=== PATIENT | female | born 1985 | race Caucasian/White ===

== ENCOUNTER 2016-12-09 14:09 | Outpatient (CLI) | payer MEDICAID | END 2016-12-09 14:10 | disposition home or self-care (01) | DX: N64.52 Nipple discharge (principal); L29.9 Pruritus, unspecified ==

== ENCOUNTER 2016-12-11 14:51 | Outpatient (CLI) | payer MEDICAID | END 2016-12-11 14:52 | disposition home or self-care (01) | DX: Z01.419 Encounter for gynecological examination (general) (routine) without abnormal findings (principal) ==

== ENCOUNTER 2017-07-01 12:16 | Emergency (ER) | payer OTHER, MEDICAID ==
--- NOTE | 2017-07-01 14:01 | XRAY Report ---
EXAM: RIGHT ANKLE RADIOGRAPHY EXAM DATE: 07/01/2017 01:19 PM. CLINICAL HISTORY: Fall, twisted ankle, unable to ambulate. COMPARISON: None. TECHNIQUE: 3 views. FINDINGS: Bones: No acute fracture or bony lesion. Plantar and posterior calcaneal spurs. Joints: Ankle mortise is well-maintained. No ankle effusion and no dislocation. Soft Tissues: Soft tissue swelling. IMPRESSION: 1. No acute osseous abnormalities. [facility] Referring Provider Line: [phone] SITE ID: [id number]
--- NOTE | 2017-07-01 14:02 | XRAY Report ---
EXAM: RIGHT FOOT RADIOGRAPHY EXAM DATE: 07/01/2017 01:19 PM. CLINICAL HISTORY: Fall, twisted ankle, unable to ambulate. COMPARISON: None. TECHNIQUE: 3 views. FINDINGS: Bones: No acute fracture or bony lesion. Posterior and plantar calcaneal spurs. Joints: Mild right first MTP joint degenerative changes. No dislocation. Soft Tissues: Soft tissue swelling. IMPRESSION: 1. No acute osseous abnormalities. [facility] Referring Provider Line: [phone] SITE ID: [id number]
[2017-07-01] MEDS: IBUPROFEN 400 MG TABLET PO STA (16:14)
[2017-07-01] MEDS: ACETAMINOPHEN 325 MG TABLET PO STA (16:14)
--- NOTE | 2017-07-01 16:15 | ED Physician Documentation ---
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: section - Present Medications Home Medications: Ambulatory Orders Medication Instructions Recorded Confirmed No Known Home Medications [No 07/01/17 07/01/17 Known Home Medications] - Allergies Allergies/Adverse Reactions: Allergies Allergy/AdvReac Type Severity Reaction Status Date / Time No Known Drug Allergies Allergy Verified 07/01/17 12:26 - Social History Does the pt smoke?: Yes Smoking Status: Current every day smoker Does the pt drink ETOH?: No Does the pt have substance abuse?: No - Immunizations Immunizations are current?: Yes PD ED PE NORMAL - Vitals Vital signs reviewed: Yes - Cardiac Cardiac: RRR - Respiratory Respiratory: No respiratory distress - Extremities Extremities: Other (R ankle swollen early ecchymosis, TTP lateral lig and proximal lateral foot, MSV intact) Results - Vitals Vitals: Vital Signs - 24 hr 07/01/17 12:23 Temperature 36.6 C Heart Rate 103 H Respiratory 16 Rate Blood Pressure 144/102 H O2 Saturation 98 Oxygen O2 Source Room air - Rads (name of study) foot ankle Radiology: See rad report (neg) Departure - Departure Disposition: 01 Home, Self Care Clinical Impression: Ankle sprain Qualifiers: Encounter type: initial encounter Involved ligament of ankle: unspecified ligament Laterality: right Qualified Code(s): S93.401A - Sprain of unspecified ligament of right ankle, initial encounter Foot sprain Qualifiers: Encounter type: initial encounter Laterality: right Qualified Code(s): S93.601A - Unspecified sprain of right foot, initial encounter Condition: Good Instructions: ED Sprain Ankle, ED Sprain Foot Follow-Up: Vonda Hawkins ARNP [Primary Care Provider] - Comments: Wear the STELLA, ice, elevate your foot Motrin and tylenol for the pain Use the crutches and / or walking boot to rest your foot and ankle. May gradually increase your activity as tolerated If still too painful to bear weight in 2 weeks, please see your PMD for a recheck and consideration of further imaging Also please have your PMD recheck your blood pressure - it was high today Forms: Activity restrictions
[2017-07-01] MEDS ORDERED: ACETAMINOPHEN 325 MG TABLET PO ONE (16:16)
[2017-07-01] MEDS ORDERED: IBUPROFEN 400 MG TABLET PO ONE (16:16)
[2017-07-01 16:32] VITALS: BP 148/97
== END 2017-07-01 16:31 | disposition home or self-care (01) ==
LOC: ED 12:16
DX: S93.401A Sprain of unspecified ligament of right ankle, initial encounter (principal); S93.601A Unspecified sprain of right foot, initial encounter; W10.8XXA Fall (on) (from) other stairs and steps, initial encounter; Y92.89 Other specified places as the place of occurrence of the external cause; Y99.0 Civilian activity done for income or pay; F17.200 Nicotine dependence, unspecified, uncomplicated
CPT/HCPCS: 1040M; 73610; 73630; 99283; A9270

== ENCOUNTER 2017-09-01 09:31 | Outpatient (CLI) | payer MEDICAID ==
[2017-09-02 10:27] LABS: TEST RESULT REPORT
[2017-09-03 20:06] LABS: TEST RESULT REPORT
== END 2017-09-01 09:32 | disposition home or self-care (01) ==
LOC: LAB.S 09:31
PROVIDERS: ATTEND Nurse Practitioner Family
DX: Z20.2 Contact with and (suspected) exposure to infections with a predominantly sexual mode of transmission (principal)
CPT/HCPCS: 36415; 81599; 86592; 86695; 86696; 86803; 87389

== ENCOUNTER 2018-02-02 08:00 | Outpatient (CLI) | payer MEDICAID ==
[2018-02-02 17:55] LABS: BASOPHILS # (AUTO) 0.1 10^3/uL (0.0-0.1); BASOPHILS % (AUTO) 1.1 %; EOSINOPHILS # (AUTO) 0.4 10^3/uL (0.0-0.7); EOSINOPHILS % (AUTO) 6.5 %; HGB - HEMOGLOBIN 14.4 g/dL (12.0-16.0); LYMPHOCYTES # (AUTO) 1.7 10^3/uL (1.5-3.5); LYMPHOCYTES % (AUTO) 28.3 %; MEAN CORPUSCULAR HEMOGLOBIN 31.1 pg (27.0-31.0); MEAN CORPUSCULAR HGB CONC 33.1 g/dL (32.0-36.0); MEAN CORPUSCULAR VOLUME 93.9 fL (81.0-99.0); MEAN PLATELET VOLUME 8.3 fL (7.9-10.8); MONOCYTES # (AUTO) 0.6 10^3/uL (0.0-1.0); MONOCYTES % (AUTO) 8.9 %; NEUTROPHILS # (AUTO) 3.4 10^3/uL (1.5-6.6); NEUTROPHILS % (AUTO) 55.2 %; PLT - PLATELET COUNT 322 10^3/uL (130-450); RED BLOOD COUNT 4.64 10^6/uL (4.20-5.40); RED CELL DISTRIBUTION WIDTH 13.4 % (12.0-15.0); WHITE BLOOD COUNT 6.2 x10^3/uL (4.8-10.8)
[2018-02-02 19:06] LABS: ALBUMIN 4.4 g/dL (3.2-5.5); ALBUMIN/GLOBULIN RATIO 1.5 (1.0-2.2); ALKALINE PHOSPHATASE 37 IU/L (42-121); ALT ALANINE AMINOTRANSFERASE 15 IU/L (10-60); AST ASPARTATE AMINOTRANSFERASE 15 IU/L (10-42); BILIRUBIN,TOTAL 0.3 mg/dL (0.2-1.0); BUN - BLOOD UREA NITROGEN 14 mg/dL (6-20); CALCIUM 9.2 mg/dL (8.5-10.3); CARBON DIOXIDE - CO2 25 mmol/L (21-32); CHLORIDE 106 mmol/L (101-111); CREATININE 0.7 mg/dL (0.4-1.0); GFR - MDRD 98 (>89); GLUCOSE 100 mg/dL (70-100); SODIUM 139 mmol/L (135-145); TOTAL PROTEIN 7.4 g/dL (6.7-8.2)
== END 2018-02-02 08:01 | disposition home or self-care (01) ==
LOC: LAB.S 08:00
PROVIDERS: ATTEND Nurse Practitioner Family
DX: L65.9 Nonscarring hair loss, unspecified (principal)
CPT/HCPCS: 36415; 80053; 84443; 85025

== ENCOUNTER 2020-10-26 15:24 | Outpatient (CLI) | payer MEDICAID | END 2020-10-26 15:25 | disposition home or self-care (01) | LOC: COV 15:24 | PROVIDERS: ATTEND Family Medicine | DX: Z20.828 Contact with and (suspected) exposure to other viral communicable diseases (principal) ==

== ENCOUNTER 2020-12-26 08:00 | Outpatient (CLI) | payer MEDICAID ==
[2020-12-26 18:06] LABS: MUDS CUTOFF CONCENTRATIONS CUTOFF CONC BELOW:
[2020-12-26 18:19] LABS: BILIRUBIN,URINE NEGATIVE (NEGATIVE); GLUCOSE, URINE (UA) NEGATIVE (NEGATIVE); KETONES,URINE (UA) NEGATIVE (NEGATIVE); LEUKOCYTE ESTERASE, URINE NEGATIVE (NEGATIVE); NITRITE,URINE NEGATIVE (NEGATIVE); OCCULT BLOOD,URINE NEGATIVE (NEGATIVE); PH,URINE 6.5 PH (5.0-7.5); PROTEIN,URINE NEGATIVE (NEGATIVE); UROBILINOGEN,URINE 0.2 (NORMAL) E.U./dL (NORMAL)
[2020-12-26 18:22] LABS: BACTERIA,URINE None Seen /HPF (None Seen); CLARITY,URINE CLEAR (CLEAR); RBC,URINE None Seen /HPF (0-5); SQUAMOUS EPITHELIAL CELL,UR RARE Squamous (<= Few)
[2020-12-26 19:05] LABS: AMPHETAMINE SCREEN,URINE NEGATIVE (NEGATIVE); BENZODIAZEPINES SCREEN, URINE NEGATIVE (NEGATIVE); COCAINE SCREEN URINE NEGATIVE (NEGATIVE); METHADONE SCREEN, URINE NEGATIVE (NEGATIVE); METHAMPHETAMINES SCREEN, URINE NEGATIVE (NEGATIVE); OPIATE SCREEN, URINE NEGATIVE (NEGATIVE); OXYCODONE SCREEN, URINE NEGATIVE (NEGATIVE); PROPOXYPHENE SCREEN, URINE NEGATIVE (NEGATIVE); TRICYCLIC ANTIDEPRESSANT,URINE NEGATIVE (NEGATIVE)
== END 2020-12-26 23:59 | disposition home or self-care (01) ==
LOC: LAB.R 08:00
PROVIDERS: ATTEND Obstetrics & Gynecology
DX: O09.91 Supervision of high risk pregnancy, unspecified, first trimester (principal)
CPT/HCPCS: 80306; 81001; 81599; 87086

== ENCOUNTER 2020-12-26 13:30 | Outpatient (CLI) | payer MEDICAID ==
[2020-12-26 14:14] LABS: BASOPHILS # (AUTO) 0.1 10^3/uL (0.0-0.1); BASOPHILS % (AUTO) 0.5 %; EOSINOPHILS # (AUTO) 0.4 10^3/uL (0.0-0.7); EOSINOPHILS % (AUTO) 3.1 %; HGB - HEMOGLOBIN 14.3 g/dL (12.0-16.0); LYMPHOCYTES % (AUTO) 17.4 %; MEAN CORPUSCULAR HEMOGLOBIN 32.6 pg (27.0-31.0); MEAN CORPUSCULAR HGB CONC 33.9 g/dL (32.0-36.0); MEAN CORPUSCULAR VOLUME 96.1 fL (81.0-99.0); MEAN PLATELET VOLUME 9.4 fL (7.9-10.8); MONOCYTES # (AUTO) 0.7 10^3/uL (0.0-1.0); MONOCYTES % (AUTO) 6.6 %; NEUTROPHILS # (AUTO) 8.1 10^3/uL (1.5-6.6); NEUTROPHILS % (AUTO) 72.2 %; PLT - PLATELET COUNT 342 10^3/uL (130-450); RED BLOOD COUNT 4.39 10^6/uL (4.20-5.40); WHITE BLOOD COUNT 11.3 x10^3/uL (4.8-10.8)
[2020-12-26 15:22] LABS: ALBUMIN/GLOBULIN RATIO 1.3 (1.0-2.2); BILIRUBIN,TOTAL 0.5 mg/dL (0.2-1.0); CALCIUM 9.4 mg/dL (8.5-10.3); CREATININE 0.8 mg/dL (0.4-1.0); TOTAL PROTEIN 7.1 g/dL (6.7-8.2); URIC ACID 4.6 mg/dL (2.6-7.2)
[2020-12-27 12:22] LABS: HEPATITIS C ANTIBODY NON-REACTIVE (NON-REACTIVE)
[2020-12-27 12:23] LABS: HEPATITIS B SURFACE ANTIGEN NON-REACTIVE (NON-REACTIVE)
[2020-12-27 14:42] LABS: HIV AG/AB 4TH GEN NON-REACTIVE (NON-REACTIVE)
== END 2020-12-26 13:31 | disposition home or self-care (01) ==
LOC: LAB 13:30
PROVIDERS: ATTEND Obstetrics & Gynecology
DX: O16.9 Unspecified maternal hypertension, unspecified trimester (principal); R03.0 Elevated blood-pressure reading, without diagnosis of hypertension; Z3A.00 Weeks of gestation of pregnancy not specified; O09.91 Supervision of high risk pregnancy, unspecified, first trimester
CPT/HCPCS: 36415; 80053; 80306; 80349; 81001; 81599; 84550; 85025; 86592; 86762; 86787; 86803; 86850; 86900; 86901; 87086; 87340; 87389

== ENCOUNTER 2021-01-01 09:16 | Outpatient (CLI) | payer MEDICAID ==
--- NOTE | 2021-01-01 11:37 | Ultrasound Report ---
PROCEDURE: OB First Trimester w/TV INDICATIONS: SUPERVISION HIGH RISK OUTSIDE/PRIOR DATING DATA: Last menstrual period (LMP): Unknown. LMP-based estimated date of delivery (CARLOS): Unknown. First dating scan (date and location): 01/01/2021. Estimated date of delivery (CARLOS) from first dating scan: 08/13/2021. TECHNIQUE: Real-time scanning was performed of the fetus and maternal pelvic organs, with image documentation. Endovaginal scanning was also performed to better visualize the fetus and maternal ovaries. COMPARISON: None FINDINGS: Embryo: There is a gestational sac in the uterine fundus measuring approximately 3.7 cm, correspondi ng to gestational age of 9 weeks 0 days. Within the gestational sac, there is a fetus with a crown-ru mp length of 1.6 cm, corresponding to a gestational age of 8 weeks 0 days. heart rate is detect ed at 155 bpm. Measurement variability in dating: +/- 4 weeks by LMP, +/- 7 days by mean sac diameter (use before 6 weeks gestation if crown-rump length not able to be measured), +/- 5 days by crown-rump length (6-12 weeks gestation). Maternal organs: Ovaries are within normal limits.. IMPRESSION: Single live intrauterine gestation with estimated ultrasound age of 8 weeks 0 days. Reviewed by: Jalen Poe MD on 01/01/2021 10:36 AM RIP Approved by: Jalen Poe MD on 01/01/2021 10:36 AM [facility] Station ID: [id number]
== END 2021-01-01 09:17 | disposition home or self-care (01) ==
LOC: DI 09:16
PROVIDERS: ATTEND Obstetrics & Gynecology
DX: O09.91 Supervision of high risk pregnancy, unspecified, first trimester (principal); Z3A.08 8 weeks gestation of pregnancy

== ENCOUNTER 2021-01-25 10:11 | Outpatient (CLI) | payer MEDICAID ==
[2021-01-25 12:01] LABS: ESTIMATED AVERAGE GLUCOSE 108 mg/dL (70-100); HEMOGLOBIN A1c% 5.4 % (4.27-6.07)
== END 2021-01-25 10:12 | disposition home or self-care (01) ==
LOC: LAB 10:11
PROVIDERS: ATTEND Obstetrics & Gynecology
DX: O09.91 Supervision of high risk pregnancy, unspecified, first trimester (principal)
CPT/HCPCS: 36415; 81220; 81243; 81329; 81599; 82950; 83036

== ENCOUNTER 2021-01-29 07:00 | Outpatient (CLI) | payer MEDICAID ==
[2021-01-29 22:07] LABS: CREATININE,URINE 120.6 mg/dL
== END 2021-01-29 23:59 | disposition home or self-care (01) ==
LOC: LAB.R 07:00
PROVIDERS: ATTEND Obstetrics & Gynecology
DX: R03.0 Elevated blood-pressure reading, without diagnosis of hypertension (principal)
CPT/HCPCS: 82570; 84156

== ENCOUNTER 2021-03-20 10:37 | Outpatient (CLI) | payer MEDICAID | END 2021-03-20 10:38 | disposition home or self-care (01) | LOC: LAB 10:37 | PROVIDERS: ATTEND Obstetrics & Gynecology | DX: O09.91 Supervision of high risk pregnancy, unspecified, first trimester (principal) | CPT/HCPCS: 36415; 81599; 82105 ==

== ENCOUNTER 2021-03-27 12:30 | Outpatient (CLI) | payer MEDICAID ==
--- NOTE | 2021-03-27 16:52 | Ultrasound Report ---
PROCEDURE: OB Detailed Eval INDICATIONS: SCREENING, SUPERVISION OF HIGH RISK PREG OUTSIDE/PRIOR DATING DATA: Last menstrual period (LMP): Unknown. LMP-based estimated date of delivery (CARLOS): Unknown. First dating scan (date and location): 01/01/2021. Estimated date of delivery (CARLOS) from first dating scan: 08/13/2021. TECHNIQUE: Real-time scanning was performed of the fetus, with image documentation and biometric measurements. COMPARISON: OB ultrasound 01/01/2021 FINDINGS: General: A single living intrauterine gestation is present. Presentation: Variable Placenta: Placental position is anterior, without previa. Amniotic fluid index: 16.1 cm, within normal limits for gestational age. Largest pocket 4.9 cm. heart rate: 145 beats per minute. Maternal cervical canal: 5.2 cm long; normal length is 2.5 cm or more. biometrics: Biparietal diameter: 5.2 cm 21 weeks 6 days Head circumference: 19.4 cm 21 weeks 4 days Abdominal circumference: 15.9 cm 21 weeks 0 days Femur length: 3.7 cm 21 weeks 6 days Estimated gestational age from initial scan: 20 weeks 1 day Composite gestational age from present scan: 21 weeks 4 days Estimated weight and percentile: 424g 97th percentile Measurement variability in biometric dating: +/- 10 days from 12-20 weeks gestation, +/- 2 weeks from 20-30 weeks gestation, +/- 3 weeks at 30 weeks gestation or later. Anatomic survey: Neuro: Ventricles are normal at less than 10 mm. Cisterna magna is normal at 3-11 mm. Cerebellum i s normal in size and morphology. Nuchal skin fold: Normal at less than 6 mm between 14 and 20 weeks gestational age. Face: Nose and lips, facial profile are normal. Spine: No evidence for spina bifida. Heart: 4-chambered heart and ventricular outflow tracts are suboptimally evaluated.. Diaphragm: Diaphragm is intact. Stomach: Left-sided stomach is present. Kidneys: No hydronephrosis. Normal is less than 5 mm in 2nd trimester, less than 7 mm in 3rd trimester. Cord: 3 vessel cord has orthotopic insertion. Bladder: Normal in size. Extremities: All 4 extremities are visualized. IMPRESSION: 1. Single live intrauterine with ultrasound gestational age today 21 weeks 4 days. 2. Four-chamber heart and outflow tracts are suboptimally evaluated. Recommend short interval imaging follow-up for reevaluation. Reviewed by: Rosenda Kelsey MD on 03/27/2021 4:50 PM PDT Approved by: Rosenda Kelsey MD on 03/27/2021 4:50 PM PDT Station ID: [id number]
== END 2021-03-27 12:31 | disposition home or self-care (01) ==
LOC: DI 12:30
PROVIDERS: ATTEND Obstetrics & Gynecology
DX: Z36.89 Encounter for other specified antenatal screening (principal); O09.91 Supervision of high risk pregnancy, unspecified, first trimester; Z3A.21 21 weeks gestation of pregnancy

== ENCOUNTER 2021-04-12 07:15 | Outpatient (CLI) | payer MEDICAID ==
--- NOTE | 2021-04-12 16:05 | Ultrasound Report ---
PROCEDURE: OB F/U or Repeat INDICATIONS: SUPERVISION OF HIGH RISK OUTSIDE/PRIOR DATING DATA: Last menstrual period (LMP): Unknown. LMP-based estimated date of delivery (CARLOS): Unknown. First dating scan (date and location): 01/01/2021. Estimated date of delivery (CARLOS) from first dating scan: 08/13/2021. The below data below was generated using the ultrasound CARLOS of 01/01/21 TECHNIQUE: Real-time scanning was performed of the fetus, with image documentation and biometric measurements. COMPARISON: OB ultrasound 01/01/2021, 03/27/2021 FINDINGS: General: A single living intrauterine gestation is present. Presentation: Variable Placenta: Placental position is anterior, without previa. Amniotic fluid index: 16.2 cm, within normal limits for gestational age. Largest pocket 5.5 cm heart rate: 143 beats per minute. Maternal cervical canal: 5.0 cm long; normal length is 2.5 cm or more. biometrics: Estimated gestational age from initial scan: 22 weeks 3 days Other: Follow-up imaging demonstrates persistent suboptimal visualization of the heart and outflow tr acts. IMPRESSION: 1. Single live intrauterine 2. Persistent suboptimal visualization of the heart and outflow tracts. Short interval imaging follow -up is recommended for additional evaluation. Reviewed by: Rosenda Kelsey MD on 04/12/2021 4:04 PM PDT Approved by: Rosenda Kelsey MD on 04/12/2021 4:04 PM PDT Station ID: [id number]
== END 2021-04-12 07:16 | disposition home or self-care (01) ==
LOC: DI 07:15
PROVIDERS: ATTEND Obstetrics & Gynecology
DX: O09.91 Supervision of high risk pregnancy, unspecified, first trimester (principal); Z3A.22 22 weeks gestation of pregnancy

== ENCOUNTER 2021-06-07 10:14 | Outpatient (CLI) | payer MEDICAID ==
[2021-06-07 14:36] LABS: HGB - HEMOGLOBIN 10.9 g/dL (12.0-16.0); MEAN CORPUSCULAR HEMOGLOBIN 31.4 pg (27.0-31.0); MEAN CORPUSCULAR VOLUME 95.1 fL (81.0-99.0); MEAN PLATELET VOLUME 10.3 fL (7.9-10.8); RED BLOOD COUNT 3.47 10^6/uL (4.20-5.40); RED CELL DISTRIBUTION WIDTH 13.2 % (12.0-15.0); WHITE BLOOD COUNT 13.9 x10^3/uL (4.8-10.8)
== END 2021-06-07 10:15 | disposition home or self-care (01) ==
LOC: LAB.S 10:14
PROVIDERS: ATTEND Obstetrics & Gynecology
DX: O09.91 Supervision of high risk pregnancy, unspecified, first trimester (principal)
CPT/HCPCS: 36415; 82950; 85027

== ENCOUNTER 2021-06-14 12:39 | Outpatient (CLI) | payer MEDICAID ==
[2021-06-14 13:31] VITALS: BP 131/84
--- NOTE | 2021-06-14 14:32 | PROCEDURE REPORT ---
- HPI Diagnosis/Indication for NST: Pre- Hypertension (History of CHTN prior to .) Current EDU 08/13/21 Gestation 31 Weeks and 3 Days 3 Para 1 Vital Signs Temperature 98.1 F 06/14/21 12:57 Heart Rate 76 06/14/21 12:57 Respiratory Rate 17 06/14/21 12:57 Blood Pressure 138/88 H 06/14/21 12:57 O2 Saturation 97 06/14/21 12:57 Temperature 98.1 F 06/14/21 12:57 Heart Rate 76 06/14/21 12:57 Respiratory Rate 17 06/14/21 12:57 Blood Pressure 131/84 H 06/14/21 13:31 O2 Saturation 97 06/14/21 12:57 - NST Procedure NST Procedure Start Date 06/14/21 Start Time 12:55 Stop Time 13:26 Vibroacoustic Stimulation Used No 36yo G1Po at 31 01/28 weeks. NST: Baseline of 125bpm. Moderate variability and Accelerations of 10X10 present. No decelerations. No contractions.Category I NST that meets Reactive criteria for gestational age. CHERELLE reported to RN from [employer] as 18.6cm total and largest pocket is 7.32cm. - Results and Plan Findings/Impression: IUP 31 01/28 with CHTN on Labetalol. P- Discharge to home. Continue with twice weekly NST's and Weekly CHERELLE. Keep all scheduled appointments. Call for any problems or issues.
--- NOTE | 2021-06-14 14:45 | Ultrasound Report ---
PROCEDURE: OB Limited INDICATIONS: CHERELLE OUTSIDE/PRIOR DATING DATA: Last menstrual period (LMP): Unknown. LMP-based estimated date of delivery (CARLOS): Unknown. First dating scan (date and location): 01/01/2021. Estimated date of delivery (CARLOS) from first dating scan: 08/13/2021. The below data below was generated using the ultrasound CARLOS of 01/01/2021 TECHNIQUE: Real-time scanning was performed of the fetus, with image documentation. Endovaginal scanning: Not performed COMPARISON: 04/12/2021 FINDINGS: A single living intrauterine gestation is present. Presentation: Vertex Placenta: Placental position is anterior, without previa. Amniotic fluid index: 18.6 cm, within normal limits for gestational age. Largest pocket is 7.3 cm heart rate: 133 beats per minutes. Maternal cervical canal: 3.4 cm long; normal length is 2.5 cm or more. Estimated gestational age from initial scan: 31 weeks 3 days. IMPRESSION: CHERELLE measures 18.6 cm, within normal limits Reviewed by: Austin Whittington MD on 06/14/2021 2:44 PM PDT Approved by: Austin Whittington MD on 06/14/2021 2:44 PM PDT Station ID: [id number]
== END 2021-06-14 14:26 | disposition home or self-care (01) ==
LOC: WFO 12:39 → FBP 12:41 → WFO 14:26
PROVIDERS: ATTEND Obstetrics & Gynecology
DX: O10.913 Unspecified pre-existing hypertension complicating pregnancy, third trimester (principal); Z3A.31 31 weeks gestation of pregnancy; Z79.899 Other long term (current) drug therapy
CPT/HCPCS: 59025

== ENCOUNTER 2021-06-18 14:23 | Outpatient (CLI) | payer MEDICAID ==
[2021-06-18 15:18] VITALS: BP 118/73
--- NOTE | 2021-06-18 16:59 | PROCEDURE REPORT ---
- HPI Diagnosis/Indication for NST: Pre- Hypertension (Chronic Hypertension and Gestional Diabetes) Current EDU 08/13/21 Gestation 32 Weeks and 0 Days 3 Para 1 Vital Signs Temperature 98.8 F 06/18/21 14:44 Heart Rate 90 06/18/21 14:44 Respiratory Rate 18 06/18/21 14:44 Blood Pressure 118/73 06/18/21 14:44 O2 Saturation 100 06/18/21 14:44 Temperature 98.8 F 06/18/21 14:44 Heart Rate 90 06/18/21 14:44 Respiratory Rate 18 06/18/21 14:44 Blood Pressure 118/73 06/18/21 14:44 O2 Saturation 100 06/18/21 14:44 - NST Procedure NST Procedure Start Date 06/18/21 Start Time 14:42 Stop Time 15:21 Vibroacoustic Stimulation Used Yes Patient States Movement Yes 36yo at 32 0/7 with Chroinic Hypertension and Gestational Diabetes. Presents for Non-stress test. NST: Baseline Heart Monitor is 130 bpm with moderate Variability and Accelerations are present. Reactive NST and Category I monitor strip. Continue with all scheduled appointments and monitoring. Call for any concerns or problems. - Results and Plan Findings/Impression: Reactive NST Plan: Follow-up as scheduled.
== END 2021-06-18 15:30 | disposition home or self-care (01) ==
LOC: WFO 14:23 → FBP 14:25 → WFO 15:30
PROVIDERS: ATTEND Obstetrics & Gynecology
DX: O24.419 Gestational diabetes mellitus in pregnancy, unspecified control (principal); O10.913 Unspecified pre-existing hypertension complicating pregnancy, third trimester; O09.523 Supervision of elderly multigravida, third trimester; Z3A.32 32 weeks gestation of pregnancy
CPT/HCPCS: 59025

== ENCOUNTER 2021-06-21 13:55 | Outpatient (CLI) | payer MEDICAID ==
--- NOTE | 2021-06-21 16:12 | Ultrasound Report ---
PROCEDURE: OB Limited INDICATIONS: CHRONIC HYPERTENSION OUTSIDE/PRIOR DATING DATA: Last menstrual period (LMP): Unknown. LMP-based estimated date of delivery (CARLOS): Unknown. First dating scan (date and location): 01/01/2021 at [facility]. Estimated date of delivery (CARLOS) from first dating scan: 08/13/2021. The below data below was generated using the ultrasound CARLOS of 08/13/2021 TECHNIQUE: Real-time scanning was performed of the fetus, with image documentation. Endovaginal scanning: Not performed COMPARISON: OB ultrasound 06/14/2021. FINDINGS: A single living intrauterine gestation is present. Presentation: Vertex Placenta: Placental position is anterior, without previa. Amniotic fluid index: 26.1 cm, slightly elevated for gestational age although visually amniotic fluid appears normal. Largest pocket is 8.5 cm. heart rate: 136 beats per minutes. Maternal cervical canal: Not well visualized. Estimated gestational age from initial scan: 32 weeks 3 days. IMPRESSION: 1. Single live intrauterine . 2. Amniotic fluid index is slightly high at 26.1 cm with the largest pocket measuring 8.5 cm. The am ount of amniotic fluid appears grossly normal however. 3. Nuchal cord. Reviewed by: Ashok López MD on 06/21/2021 4:11 PM PDT Approved by: Ashok López MD on 06/21/2021 4:11 PM PDT Station ID: [id number]
== END 2021-06-21 13:56 | disposition home or self-care (01) ==
LOC: DI 13:55
PROVIDERS: ATTEND Obstetrics & Gynecology
DX: O10.913 Unspecified pre-existing hypertension complicating pregnancy, third trimester (principal); Z3A.32 32 weeks gestation of pregnancy

== ENCOUNTER 2021-06-21 14:44 | Outpatient (CLI) | payer MEDICAID ==
[2021-06-21 15:10] VITALS: BP 135/81
--- NOTE | 2021-06-21 18:02 | PROCEDURE REPORT ---
- HPI Diagnosis/Indication for NST: Gestational Diabetes Current EDU 08/13/21 Gestation 32 Weeks and 3 Days 2 Para 1 Vital Signs Temperature 98.8 F 06/21/21 15:08 Heart Rate 92 06/21/21 15:08 Respiratory Rate 20 06/21/21 15:08 Blood Pressure 135/81 H 06/21/21 15:08 O2 Saturation 97 06/21/21 15:08 Temperature 98.8 F 06/21/21 15:08 Heart Rate 92 06/21/21 15:08 Respiratory Rate 20 06/21/21 15:08 Blood Pressure 135/81 H 06/21/21 15:08 O2 Saturation 97 06/21/21 15:08 Patient is 36 yo AT 32 3/7 with GDM. Patient is here for NST. NST: Baseline 130's with moderate variability and Accelerations. No decelerations. Two contractions in 20 minutes. Reactive NST. Category I Monitor strip. A-IUP 32 3/y with GDM P- Continue all monitoring and appointments. - NST Procedure NST Procedure Start Date 06/21/21 Start Time 15:05 Stop Time 15:35 Vibroacoustic Stimulation Used No Patient States Movement Yes
== END 2021-06-21 15:35 | disposition home or self-care (01) ==
LOC: WFO 14:44 → FBP 15:04 → WFO 15:35
PROVIDERS: ATTEND Obstetrics & Gynecology
DX: O24.419 Gestational diabetes mellitus in pregnancy, unspecified control (principal); O10.913 Unspecified pre-existing hypertension complicating pregnancy, third trimester; Z3A.32 32 weeks gestation of pregnancy
CPT/HCPCS: 59025

== ENCOUNTER 2021-06-25 11:28 | Outpatient (CLI) | payer MEDICAID ==
[2021-06-25 11:43] VITALS: BP 129/83
--- NOTE | 2021-06-25 20:04 | PROCEDURE REPORT ---
- HPI Current EDU 08/13/21 Gestation 33 Weeks and 0 Days 3 Para 1 Vital Signs Temperature 97.7 F 06/25/21 11:41 Heart Rate 84 06/25/21 11:41 Respiratory Rate 20 06/25/21 11:41 Blood Pressure 129/83 H 06/25/21 11:41 O2 Saturation 98 06/25/21 11:41 Temperature 97.7 F 06/25/21 11:41 Heart Rate 84 06/25/21 11:41 Respiratory Rate 20 06/25/21 11:41 Blood Pressure 129/83 H 06/25/21 11:41 O2 Saturation 98 06/25/21 11:41 - NST Procedure NST Procedure Start Date 06/25/21 Start Time 11:40 Stop Time 12:03 Vibroacoustic Stimulation Used No Patient States Movement Yes EFM 125 mod sridhar 15x15 accels no decels TOCO: quiet - Results and Plan Findings/Impression: Patient is a 36 yo at 33+0 wga with affected by GDM and chronic hypertension here for NST Cat I tracing Cont with twce weekly NST and weekly CHERELLE DX: IUP at 33+0 wga Gestational diabetes Chronic hypertension NST read 06/25/21 DOS: 06/25/21
== END 2021-06-25 12:04 | disposition home or self-care (01) ==
LOC: WFO 11:28 → FBP 11:31 → WFO 12:04
PROVIDERS: ATTEND Obstetrics & Gynecology
DX: O24.419 Gestational diabetes mellitus in pregnancy, unspecified control (principal); O10.913 Unspecified pre-existing hypertension complicating pregnancy, third trimester; Z3A.33 33 weeks gestation of pregnancy
CPT/HCPCS: 59025

== ENCOUNTER 2021-06-28 14:00 | Outpatient (CLI) | payer MEDICAID ==
--- NOTE | 2021-06-28 15:40 | Ultrasound Report ---
PROCEDURE: OB F/U or Repeat INDICATIONS: GESTATIONAL DIABETES OUTSIDE/PRIOR DATING DATA: First dating scan (date and location): 01/01/2021. Estimated date of delivery (CARLOS) from first dating scan: 08/13/2021. The below data below was generated using the 01/01/2021 CARLOS of 08/13/2021 TECHNIQUE: Real-time scanning was performed of the fetus, with image documentation and biometric measurements. Endovaginal scanning: No COMPARISON: Prior OB ultrasound dated 06/21/2021 FINDINGS: General: A single living intrauterine gestation is present. Presentation: Report Placenta: Placental position is anterior, without previa. Amniotic fluid index: 21 cm, normal for gestational age. heart rate: 135 beats per minute. Maternal cervical canal: Not well seen. biometrics: Biparietal diameter: 36 week Head circumference: 38 week Abdominal circumference: 38 weeks 3 days Femur length: 34 weeks 4 days Estimated gestational age from initial scan: 33 weeks 3 days Composite gestational age from present scan: 36 weeks 5 days Estimated weight and percentile: 314 5 g; 100 percentile. Measurement variability in biometric dating: +/- 10 days from 12-20 weeks gestation, +/- 2 weeks from 20-30 weeks gestation, +/- 3 weeks at 30 weeks gestation or more. Other: Not applicable. IMPRESSION: Single living IUP redemonstrated and interval growth is greater than expected and macros omia cannot be excluded. Recommend close clinical correlation and follow-up. Reviewed by: SUZY Rosario on 06/28/2021 3:39 PM PDT Approved by: Ashok López MD on 06/28/2021 3:39 PM PDT Station ID: [id number]
== END 2021-06-28 14:01 | disposition home or self-care (01) ==
LOC: DI 14:00
PROVIDERS: ATTEND Obstetrics & Gynecology
DX: O09.93 Supervision of high risk pregnancy, unspecified, third trimester (principal); O16.3 Unspecified maternal hypertension, third trimester; O24.419 Gestational diabetes mellitus in pregnancy, unspecified control; Z3A.33 33 weeks gestation of pregnancy; O36.63X0 Maternal care for excessive fetal growth, third trimester, not applicable or unspecified

== ENCOUNTER 2021-06-28 14:59 | Outpatient (CLI) | payer MEDICAID ==
[2021-06-28 15:30] VITALS: BP 129/68
--- NOTE | 2021-06-28 15:55 | PROCEDURE REPORT ---
- HPI Diagnosis/Indication for NST: Gestational Hypertension Vital Signs Temperature 37.2 C 06/28/21 15:18 Heart Rate 99 06/28/21 15:18 Respiratory Rate 17 06/28/21 15:18 Blood Pressure 147/75 H 06/28/21 15:18 O2 Saturation 97 06/28/21 15:18 Temperature 37.2 C 06/28/21 15:18 Heart Rate 99 06/28/21 15:18 Respiratory Rate 17 06/28/21 15:18 Blood Pressure 129/68 06/28/21 15:28 O2 Saturation 97 06/28/21 15:18 - NST Procedure NST Procedure Start Time 11:40 Stop Time 12:03 - Results and Plan Findings/Impression: baseline 130 axcelerations present. Reactive NST Plan: continue testing
== END 2021-06-28 15:55 | disposition home or self-care (01) ==
LOC: WFO 14:59 → FBP 15:01 → WFO 15:55
PROVIDERS: ATTEND Obstetrics & Gynecology
DX: O09.93 Supervision of high risk pregnancy, unspecified, third trimester (principal); O13.3 Gestational [pregnancy-induced] hypertension without significant proteinuria, third trimester; O24.419 Gestational diabetes mellitus in pregnancy, unspecified control; O36.63X0 Maternal care for excessive fetal growth, third trimester, not applicable or unspecified; Z3A.33 33 weeks gestation of pregnancy
CPT/HCPCS: 59025

== ENCOUNTER 2021-07-02 14:44 | Outpatient (CLI) | payer MEDICAID ==
[2021-07-02 18:12] VITALS: BP 124/77
--- NOTE | 2021-07-03 12:13 | PROCEDURE REPORT ---
- HPI Diagnosis/Indication for NST: Pre- Hypertension Current EDU 08/13/21 Gestation 34 Weeks and 0 Days 3 Para 1 Vital Signs Temperature 98.3 F 07/02/21 15:10 Heart Rate 82 07/02/21 15:10 Respiratory Rate 18 07/02/21 15:10 Blood Pressure 124/77 07/02/21 15:10 O2 Saturation 96 07/02/21 15:10 Temperature 98.3 F 07/02/21 15:10 Heart Rate 82 07/02/21 15:10 Respiratory Rate 18 07/02/21 15:10 Blood Pressure 124/77 07/02/21 15:10 O2 Saturation 96 07/02/21 15:10 - NST Procedure NST Procedure Start Date 07/02/21 Start Time 15:09 Stop Time 15:40 Vibroacoustic Stimulation Used No Patient States Movement Yes EFM 130 mod sridhar 15x15 accels no decels TOCO: quiet - Results and Plan Findings/Impression: 36 yo at 34+0 with CHTN and AGA here for NST Cat I tracing Cont with twice weekly NST and weekly CHERELLE DOS: 07/02/21 date of NST read: 07/02/21 DX: IUP at 34+0 ega AMA CHTN
== END 2021-07-02 16:15 | disposition home or self-care (01) ==
LOC: WFO 14:44 → FBP 14:52 → WFO 16:15
PROVIDERS: ATTEND Obstetrics & Gynecology
DX: O10.913 Unspecified pre-existing hypertension complicating pregnancy, third trimester (principal); Z3A.34 34 weeks gestation of pregnancy; O09.523 Supervision of elderly multigravida, third trimester
CPT/HCPCS: 59025

== ENCOUNTER 2021-07-09 14:58 | Outpatient (CLI) | payer MEDICAID ==
[2021-07-09 15:40] VITALS: BP 125/65
--- NOTE | 2021-07-14 04:28 | PROCEDURE REPORT ---
- HPI Diagnosis/Indication for NST: Gestational Diabetes Current EDU 08/13/21 Gestation 35 Weeks and 0 Days 3 Para 1 Vital Signs Temperature 98.4 F 07/09/21 15:07 Heart Rate 85 07/09/21 15:07 Respiratory Rate 07/09/21 15:07 Blood Pressure 140/86 H 07/09/21 15:07 O2 Saturation 98 07/09/21 15:07 Temperature 98.4 F 07/09/21 15:07 Heart Rate 85 07/09/21 15:07 Respiratory Rate 07/09/21 15:07 Blood Pressure 125/65 07/09/21 15:39 O2 Saturation 98 07/09/21 15:07 - NST Procedure NST Procedure Start Date 07/09/21 Start Time 15:05 Stop Time 15:30 Vibroacoustic Stimulation Used No Patient States Movement Yes EFM: 125 mod sridhar 15x15 accels no decels TOCO: quiet - Results and Plan Findings/Impression: 36 yo at 35+ 0 with affected by GDM and CHTN here for NST Cat I tracing Cont with twice weekly NST and weekly CHERELLE NST read 07/09/21 DOS: 07/09/21 DX: CHTN A2DM AMA IUP at 35+0 wga
== END 2021-07-09 15:33 | disposition home or self-care (01) ==
LOC: WFO 14:58 → FBP 14:59 → WFO 15:33
PROVIDERS: ATTEND Obstetrics & Gynecology
DX: O24.419 Gestational diabetes mellitus in pregnancy, unspecified control (principal); O10.913 Unspecified pre-existing hypertension complicating pregnancy, third trimester; O09.523 Supervision of elderly multigravida, third trimester; Z3A.35 35 weeks gestation of pregnancy
CPT/HCPCS: 59025

== ENCOUNTER 2021-07-11 13:52 | Outpatient (CLI) | payer MEDICAID ==
[2021-07-11 14:39] VITALS: BP 121/68
--- NOTE | 2021-07-14 04:46 | PROCEDURE REPORT ---
- HPI Current EDU 08/13/21 Gestation 35 Weeks and 2 Days 2 Para 1 Vital Signs Heart Rate 84 07/11/21 14:18 Respiratory Rate 18 07/11/21 14:18 Blood Pressure 146/86 H 07/11/21 14:18 Temperature Heart Rate 84 07/11/21 14:18 Respiratory Rate 18 07/11/21 14:18 Blood Pressure 121/68 07/11/21 14:39 O2 Saturation - NST Procedure NST Procedure Start Date 07/11/21 Start Time 14:06 Stop Time 15:00 Vibroacoustic Stimulation Used No Patient States Movement Yes EFM: 135 mod sridhar 15x15 accels no decels TOCO: quiet - Results and Plan Plan: 36 yo at 35+ 2 with affected by GDM and CHTN here for NST Cat I tracing Cont with twice weekly NST and weekly CHERELLE NST read 07/11/21 DOS: 07/11/21 DX: CHTN A2DM AMA IUP at 35+2 wga
== END 2021-07-11 15:00 | disposition home or self-care (01) ==
LOC: WFO 13:52 → FBP 13:58 → WFO 15:00
PROVIDERS: ATTEND Obstetrics & Gynecology
DX: O24.419 Gestational diabetes mellitus in pregnancy, unspecified control (principal); O10.913 Unspecified pre-existing hypertension complicating pregnancy, third trimester; Z3A.35 35 weeks gestation of pregnancy; O09.523 Supervision of elderly multigravida, third trimester
CPT/HCPCS: 59025

== ENCOUNTER 2021-07-12 13:51 | Outpatient (CLI) | payer MEDICAID ==
--- NOTE | 2021-07-12 17:27 | Ultrasound Report ---
PROCEDURE: OB Limited INDICATIONS: CHRONIC HYPERTENSION OUTSIDE/PRIOR DATING DATA: Last menstrual period (LMP): Unknown. LMP-based estimated date of delivery (CARLOS): Unknown. First dating scan (date and location): 01/01/2021. Estimated date of delivery (CARLOS) from first dating scan: 08/13/2021. The below data below was generated using the ultrasound CARLOS of 08/13/2021 TECHNIQUE: Real-time scanning was performed of the fetus, with image documentation. Endovaginal scanning: Not performed COMPARISON: Ultrasound dated 01/01/2021, 03/27/2021, 04/12/2021, 06/12/2021, 06/21/2021, 06/28/2021, FINDINGS: A single living intrauterine gestation is present. Presentation: Vertex Placenta: Placental position is anterior, without previa. Amniotic fluid index: 15.5 cm, normal for gestational age. Largest pocket 7.9 heart rate: 127 beats per minutes. Maternal cervical canal not well seen sonographically. Estimated gestational age from initial scan: 35 weeks 3 days. IMPRESSION: Single living intrauterine fetus in vertex presentation. Normal CHERELLE. Cervix not well sonographically visualized. Reviewed by: Kamlesh Pickard MD on 07/12/2021 5:26 PM PDT Approved by: Kamlesh Pickard MD on 07/12/2021 5:26 PM PDT Station ID: [id number]
== END 2021-07-12 13:52 | disposition home or self-care (01) ==
LOC: DI 13:51
PROVIDERS: ATTEND Obstetrics & Gynecology
DX: O10.913 Unspecified pre-existing hypertension complicating pregnancy, third trimester (principal); Z3A.35 35 weeks gestation of pregnancy

== ENCOUNTER 2021-07-16 15:01 | Outpatient (CLI) | payer MEDICAID ==
[2021-07-16 16:17] LABS: BASOPHILS % (AUTO) 0.2 %; EOSINOPHILS # (AUTO) 0.3 10^3/uL (0.0-0.7); EOSINOPHILS % (AUTO) 2.3 %; HCT - HEMATOCRIT 36.7 % (37.0-47.0); HGB - HEMOGLOBIN 12.1 g/dL (12.0-16.0); LYMPHOCYTES # (AUTO) 1.7 10^3/uL (1.5-3.5); LYMPHOCYTES % (AUTO) 13.5 %; MEAN CORPUSCULAR HEMOGLOBIN 31.8 pg (27.0-31.0); MEAN CORPUSCULAR VOLUME 96.6 fL (81.0-99.0); MEAN PLATELET VOLUME 10.3 fL (7.9-10.8); MONOCYTES # (AUTO) 0.8 10^3/uL (0.0-1.0); MONOCYTES % (AUTO) 6.4 %; NEUTROPHILS # (AUTO) 9.8 10^3/uL (1.5-6.6); NEUTROPHILS % (AUTO) 76.8 %; PLT - PLATELET COUNT 326 10^3/uL (130-450); RED CELL DISTRIBUTION WIDTH 14.6 % (12.0-15.0); WHITE BLOOD COUNT 12.7 x10^3/uL (4.8-10.8)
[2021-07-16 16:21] LABS: ALBUMIN/GLOBULIN RATIO 0.8 (1.0-2.2); BILIRUBIN,TOTAL 0.7 mg/dL (0.2-1.0); CALCIUM 9.1 mg/dL (8.5-10.3); CREATININE 0.7 mg/dL (0.4-1.0); TOTAL PROTEIN 6.6 g/dL (6.7-8.2)
[2021-07-16 16:24] LABS: PROTEIN/CREATININE RATIO,URINE 0.2 (<=0.2)
[2021-07-16 17:05] VITALS: BP 121/77
--- NOTE | 2021-07-16 19:12 | PROCEDURE REPORT ---
- HPI Diagnosis/Indication for NST: Other (Pre- chronic hypertension, diabetes mellitus) Current EDU 08/13/21 Gestation 36 Weeks and 0 Days 3 Para 1 Vital Signs Temperature 98.2 F 07/16/21 15:14 Heart Rate 75 07/16/21 15:14 Respiratory Rate 18 07/16/21 15:14 Blood Pressure 140/87 H 07/16/21 15:14 O2 Saturation 99 07/16/21 15:14 Temperature 98.2 F 07/16/21 15:14 Heart Rate 83 07/16/21 16:30 Respiratory Rate 18 07/16/21 16:30 Blood Pressure 121/77 07/16/21 16:30 O2 Saturation 99 07/16/21 16:30 - NST Procedure NST Procedure Start Date 07/16/21 Start Time 15:08 Stop Time 16:01 Vibroacoustic Stimulation Used Yes Patient States Movement Yes 120 bpm baseline, moderate variability, accelerations present, no decelerations. Category 1. No contractions. - Results and Plan Findings/Impression: Patient is a 36-year-old G1, P0 at 36 weeks 0 days gestation here for scheduled NST. Patient did have elevated blood pressure 140/87. Preeclampsia labs at this time showed platelets of 326, AST/ALT of 15/16, protein creatinine ratio of 0.2. NST Performed 07/16/2021 NST Read 07/16/2021 Diagnosis 36 weeks gestation chronic hypertension Diabetes mellitus Category 1 tracing Continue with twice weekly NST. Discharge with labor and preeclampsia precautions
== END 2021-07-16 16:50 | disposition home or self-care (01) ==
LOC: WFO 15:01 → FBP 15:03 → WFO 16:50
PROVIDERS: ATTEND Obstetrics & Gynecology
DX: O10.913 Unspecified pre-existing hypertension complicating pregnancy, third trimester (principal); Z3A.36 36 weeks gestation of pregnancy; O24.419 Gestational diabetes mellitus in pregnancy, unspecified control
CPT/HCPCS: 36415; 59025; 80053; 82570; 84156; 85025

== ENCOUNTER 2021-07-19 08:00 | Outpatient (CLI) | payer MEDICAID | END 2021-07-19 23:59 | disposition home or self-care (01) | LOC: LAB.WC 08:00 | PROVIDERS: ATTEND Obstetrics & Gynecology | DX: Z36.85 Encounter for antenatal screening for Streptococcus B (principal) | CPT/HCPCS: 87797 ==

== ENCOUNTER 2021-07-19 11:58 | Outpatient (CLI) | payer MEDICAID ==
[2021-07-19 12:12] VITALS: BP 121/78
--- NOTE | 2021-07-19 14:21 | PROCEDURE REPORT ---
- HPI Diagnosis/Indication for NST: Other (Chronic Hypertensionm IUP 36 3/7) Current EDU 08/13/21 Gestation 36 Weeks and 3 Days 2 Para 1 Vital Signs Temperature 98.1 F 07/19/21 12:09 Heart Rate 80 07/19/21 12:09 Respiratory Rate 18 07/19/21 12:09 Blood Pressure 121/78 07/19/21 12:09 O2 Saturation 99 07/19/21 12:09 Temperature 98.1 F 07/19/21 12:09 Heart Rate 80 07/19/21 12:09 Respiratory Rate 18 07/19/21 12:09 Blood Pressure 121/78 07/19/21 12:09 O2 Saturation 99 07/19/21 12:09 - NST Procedure NST Procedure Start Date 07/19/21 Start Time 12:10 Stop Time 12:30 Vibroacoustic Stimulation Used No Patient States Movement Yes 36 yo at 36 3/7 weeks here for NST due to Chronic Hypertension. NST: Baseline 120 with moderate variability and accelerations. No d ecelerations. No contractions. A- IUP 36 3/7 with Chronic Hypertension and GDM. Advanced Maternal age. P-Keep all scheduled appointments with [facility] and monitoring.
== END 2021-07-19 12:35 | disposition home or self-care (01) ==
LOC: WFO 11:58 → FBP 12:02 → WFO 12:35
PROVIDERS: ATTEND Obstetrics & Gynecology
DX: O10.913 Unspecified pre-existing hypertension complicating pregnancy, third trimester (principal); Z3A.36 36 weeks gestation of pregnancy; Z36.85 Encounter for antenatal screening for Streptococcus B; O24.419 Gestational diabetes mellitus in pregnancy, unspecified control; O09.523 Supervision of elderly multigravida, third trimester
CPT/HCPCS: 59025; 87797

== ENCOUNTER 2021-07-19 13:48 | Outpatient (CLI) | payer MEDICAID ==
--- NOTE | 2021-07-19 14:46 | PROCEDURE REPORT ---
- HPI Diagnosis/Indication for NST: Other (Hypertension, Advamced Maternal Age.) - NST Procedure NST Procedure Start Time 12:10 Stop Time 12:30 36 yo at 36 3/7 here for NST. NST is Baseline of 120 with moderate variability and accelerations. No decelerations. No contractions. Reactive NST, Category I monitor strip. A- IUP 36 3/7 with Reactive NST. Advanced Maternal age. Hypertension. P- Keep all appointments with [facility] for monitoring.
--- NOTE | 2021-07-19 16:55 | Ultrasound Report ---
PROCEDURE: OB Limited INDICATIONS: CHRONIC HYPERTENSION OUTSIDE/PRIOR DATING DATA: Last menstrual period (LMP): Unknown. LMP-based estimated date of delivery (CARLOS): Unknown. First dating scan (date and location): 01/01/2021. Estimated date of delivery (CARLOS) from first dating scan: 08/13/2021. The below data below was generated using the ultrasound CARLOS of 01/01/21 COMPARISON: OB ultrasound 01/01/2021, 03/27/2021 TECHNIQUE: Real-time scanning was performed of the fetus, with image documentation and biometric measurements. COMPARISON: 07/12/2021 FINDINGS: General: A single living intrauterine gestation is present. Presentation: Vertex Placenta: Placental position is anterior, without previa. Amniotic fluid index: 17.3 cm, normal for gestational age. heart rate: 126 beats per minute. Maternal cervical canal: Not well seen Anatomic survey: Neuro: Not seen Nuchal skin fold: Not seen. Face: Not seen. Spine: Not seen. Heart: Not seen. Diaphragm: Diaphragm is intact. Stomach: Left-sided stomach is present. Kidneys: No hydronephrosis. Normal is less than 5 mm in 2nd trimester, less than 7 mm in 3rd trimester. Cord: Not seen. Bladder: Normal in size. Extremities: Not seen. IMPRESSION: 1. Live intrauterine with an estimated ultrasound gestational age of 36 weeks 3 days. 2. Amniotic fluid index is 17.3 cm. Reviewed by: Stuart Tirado on 07/19/2021 4:54 PM PDT Approved by: Stuart Tirado on 07/19/2021 4:54 PM PDT Station ID: [id number]
== END 2021-07-19 13:49 | disposition home or self-care (01) ==
LOC: DI 13:48
PROVIDERS: ATTEND Obstetrics & Gynecology
DX: O10.913 Unspecified pre-existing hypertension complicating pregnancy, third trimester (principal); Z3A.36 36 weeks gestation of pregnancy

== ENCOUNTER 2021-07-23 14:53 | Outpatient (CLI) | payer MEDICAID ==
[2021-07-23 15:47] LABS: BASOPHILS % (AUTO) 0.3 %; EOSINOPHILS # (AUTO) 0.3 10^3/uL (0.0-0.7); EOSINOPHILS % (AUTO) 2.9 %; HCT - HEMATOCRIT 36.2 % (37.0-47.0); HGB - HEMOGLOBIN 12.2 g/dL (12.0-16.0); LYMPHOCYTES # (AUTO) 1.6 10^3/uL (1.5-3.5); LYMPHOCYTES % (AUTO) 13.7 %; MEAN CORPUSCULAR HEMOGLOBIN 32.3 pg (27.0-31.0); MEAN CORPUSCULAR HGB CONC 33.7 g/dL (32.0-36.0); MEAN CORPUSCULAR VOLUME 95.8 fL (81.0-99.0); MEAN PLATELET VOLUME 10.4 fL (7.9-10.8); MONOCYTES # (AUTO) 0.8 10^3/uL (0.0-1.0); NEUTROPHILS # (AUTO) 8.9 10^3/uL (1.5-6.6); NEUTROPHILS % (AUTO) 75.3 %; PLT - PLATELET COUNT 298 10^3/uL (130-450); RED BLOOD COUNT 3.78 10^6/uL (4.20-5.40); RED CELL DISTRIBUTION WIDTH 14.5 % (12.0-15.0); WHITE BLOOD COUNT 11.8 x10^3/uL (4.8-10.8)
[2021-07-23 15:57] LABS: CREATININE,URINE 110.3 mg/dL; PROTEIN/CREATININE RATIO,URINE 0.2 (<=0.2)
[2021-07-23 15:59] LABS: ALBUMIN 2.9 g/dL (3.2-5.5); ALBUMIN/GLOBULIN RATIO 0.8 (1.0-2.2); BILIRUBIN,TOTAL 0.5 mg/dL (0.2-1.0); CALCIUM 9.2 mg/dL (8.5-10.3); CREATININE 0.8 mg/dL (0.4-1.0); POTASSIUM 4.2 mmol/L (3.5-5.0); TOTAL PROTEIN 6.5 g/dL (6.7-8.2)
--- NOTE | 2021-07-23 16:20 | PROCEDURE REPORT ---
- HPI Diagnosis/Indication for NST: Other (Chronic Hypertension and Gestational Diabetes) Current EDU 08/13/21 Gestation 37 Weeks and 0 Days 3 Para 1 Vital Signs Temperature 98.2 F 07/23/21 15:13 Heart Rate 84 07/23/21 15:13 Respiratory Rate 18 07/23/21 15:13 Blood Pressure 142/90 H 07/23/21 15:13 O2 Saturation 100 07/23/21 15:13 Temperature 98.2 F 07/23/21 15:13 Heart Rate 91 07/23/21 15:51 Respiratory Rate 18 07/23/21 15:51 Blood Pressure 119/80 07/23/21 15:51 O2 Saturation 100 07/23/21 15:51 - NST Procedure NST Procedure Start Date 07/23/21 Start Time 15:00 Stop Time 12:30 Patient States Movement Yes 36 yo at 37 0/7 with Chronic Hypertension and Gestational Diabetes. Patient reports good movement. Patient denies contractions. Patient is feeling more swollen. NST: 130 with moderate variability. Accelerations 15X15. No decelerations. No contractions. Reactive NST and Category I monitor strip. - Results and Plan Plan: A- IUP 37 0/7 with CHTN and GDM. P- Keep all appointments for clinic and monitoring.
--- NOTE | 2021-07-23 16:24 | PROVIDER PROGRESS NOTE ---
- HPI Chief Complaint: Other (Chronic Hypertension, Elevated blood pressures.) Current : Current EDU 08/13/21 Gestation 37 Weeks and 0 Days 3 Para 1 Vital Signs Temperature 98.2 F 07/23/21 15:13 Heart Rate 84 07/23/21 15:13 Respiratory Rate 18 07/23/21 15:13 Blood Pressure 142/90 H 07/23/21 15:13 O2 Saturation 100 07/23/21 15:13 Temperature 98.2 F 07/23/21 15:13 Heart Rate 91 07/23/21 15:51 Respiratory Rate 18 07/23/21 15:51 Blood Pressure 119/80 07/23/21 15:51 O2 Saturation 100 07/23/21 15:51 - Exam Patient states she feels more swollen. Patient denies headache, blurred vision or right upper quadrant pain. Patient reports good movement. Patient denies contractions, SROM or vaginal bleeding. O- 142/90, 144/102, 146/94 all on Left arm. Moved patient to her right side. 119/80, 135/77 Chest: Clear to auscultation. Good breath sounds in all flores. No rales, wheezes or rhonchi. Heart: RRR without murmur or gallop. Abdomen: Soft, non-tender, Gravid Extremities: No pitting pedal edema, Trace-1+ pitting pre-tibial edema. Pre-Eclampsia labs repeated, last done one week ago. Urine Protein/Creatinine 0.2, same as last week. Liver function test, platelets and other labs all within normal range. Discussed continuing Labetalol 200mg bid, and resting on her side with her feet up as much as possible. Discussed need to wear enclosed shoes. Discussed drinking 64oz of water a day. A-IUP 37 0/7 with Chronic Hyertension and GDM P- Keep clinic appointment for Friday and keep all monitoring appointments. - Procedures OB Procedure Performed: NST NST Procedure: NST Procedure Start Date 07/23/21 Start Time 15:00 Stop Time 12:30 Patient States Movement Yes
[2021-07-23 16:27] VITALS: BP 135/77
== END 2021-07-23 16:05 | disposition home or self-care (01) ==
LOC: WFO 14:53 → FBP 14:56 → WFO 16:05
PROVIDERS: ATTEND Obstetrics & Gynecology
DX: O24.419 Gestational diabetes mellitus in pregnancy, unspecified control (principal); Z3A.37 37 weeks gestation of pregnancy; O10.913 Unspecified pre-existing hypertension complicating pregnancy, third trimester; Z79.899 Other long term (current) drug therapy
CPT/HCPCS: 36415; 59025; 80053; 82570; 84156; 85025

== ENCOUNTER 2021-07-25 10:17 | Outpatient (CLI) | payer MEDICAID ==
[2021-07-25 11:17] VITALS: BP 136/78
--- NOTE | 2021-07-25 14:32 | PROCEDURE REPORT ---
- HPI Diagnosis/Indication for NST: Other (Chronic Hypertension, Gestational Diabetes.) Current EDU 08/13/21 Gestation 37 Weeks and 2 Days 3 Para 1 Vital Signs Temperature 98.1 F 07/25/21 10:38 Heart Rate 76 07/25/21 10:38 Respiratory Rate 18 07/25/21 10:38 Blood Pressure 132/77 H 07/25/21 10:38 O2 Saturation 99 07/25/21 10:38 Temperature 98.1 F 07/25/21 10:38 Heart Rate 76 07/25/21 10:38 Respiratory Rate 18 07/25/21 10:38 Blood Pressure 136/78 H 07/25/21 11:15 O2 Saturation 99 07/25/21 10:38 - NST Procedure NST Procedure Start Date 07/25/21 Start Time 10:29 Stop Time 11:00 Vibroacoustic Stimulation Used No Patient States Movement Yes Patient presented for NST and BP monitoring today. Patient reports good movement. Patient denies contractions, SROM or vaginal bleeding. Patient saw Dr. Berkowitz in the office today. NST: Baseline 125 with moderate variability and Accelerations 15X15 are present. No contractions. No decelerations. Reactive NST and Category I monitor strip. A-IUP 37 21/ with Chronic Hypertension P- Keep all clinic appointments and Monitoring. Patient has Ultrasound tomorrow.
[2021-07-25 23:17] LABS: CHLAMYDIA TRACHOMATIS DNA NEGATIVE (NEGATIVE); NEISSERIA GONORRHOEAE DNA NEGATIVE (NEGATIVE); TRICHOMONAS VAGINALIS DNA NEGATIVE (NEGATIVE)
== END 2021-07-25 11:40 | disposition home or self-care (01) ==
LOC: WFO 10:17 → FBP 10:21 → WFO 11:40 → FBP 13:07
PROVIDERS: ATTEND Obstetrics & Gynecology
DX: O10.913 Unspecified pre-existing hypertension complicating pregnancy, third trimester (principal); Z3A.37 37 weeks gestation of pregnancy; O24.419 Gestational diabetes mellitus in pregnancy, unspecified control
CPT/HCPCS: 59025; 84460; 87491; 87591; 87661

== ENCOUNTER 2021-07-25 16:59 | Outpatient (CLI) | payer MEDICAID ==
[2021-07-25 18:04] VITALS: BP 131/77
--- NOTE | 2021-07-26 11:26 | PROCEDURE REPORT ---
- HPI Diagnosis/Indication for NST: Other (Chronic Hypertension, Elevated blood pressure at home.) Current EDU 08/13/21 Gestation 37 Weeks and 2 Days 3 Para 1 Vital Signs Temperature 98.4 F 07/25/21 17:14 Heart Rate 84 07/25/21 17:14 Respiratory Rate 18 07/25/21 17:14 Blood Pressure 150/94 H 07/25/21 17:14 Temperature 98.4 F 07/25/21 17:14 Heart Rate 84 07/25/21 17:14 Respiratory Rate 18 07/25/21 17:14 Blood Pressure 131/77 H 07/25/21 17:50 O2 Saturation - NST Procedure NST Procedure Start Date 07/25/21 Start Time 17:05 Stop Time 17:35 Vibroacoustic Stimulation Used No Patient States Movement Yes Patient was seen in office and on labor and Delivery earlier today. Patient took blood pressure at home, then took 300mg of Labetaolo and came to hospital. Patient reports good movement. Patient denies contractions, SROM or vaginal bleeding. Blood pressure was in 130's over 80's 45 minutes after taking labetalol. Patient denies headaches, visual changes or any other symptoms. NST: Baseline 135 with moderate variability. Accelerations 15X15 and no decelerations. No contractions. Reactive NST and Category I monitor strip. A-IUP 37 2/7 with Chronic Hypertension and GDM P- Discharge to home, continue Labetalol 300mg bid, Rest as much as possible. Stay will hydrated. Labor precautions. Call for any problems. Follow-up with all scheduled monitoring and clinic appointments.
== END 2021-07-25 18:15 | disposition home or self-care (01) ==
LOC: WFO 16:59 → FBP 17:01 → WFO 18:15
PROVIDERS: ATTEND Obstetrics & Gynecology
DX: O10.913 Unspecified pre-existing hypertension complicating pregnancy, third trimester (principal); O24.419 Gestational diabetes mellitus in pregnancy, unspecified control; Z3A.37 37 weeks gestation of pregnancy; Z79.899 Other long term (current) drug therapy
CPT/HCPCS: 59025; 84460; 87491; 87591; 87661; 99213; 99215

== ENCOUNTER 2021-07-26 13:54 | Outpatient (CLI) | payer MEDICAID ==
--- NOTE | 2021-07-26 15:58 | Ultrasound Report ---
PROCEDURE: OB Limited INDICATIONS: CHRONIC HYPERTENSION OUTSIDE/PRIOR DATING DATA: Last menstrual period (LMP): Unknown. LMP-based estimated date of delivery (CARLOS): Unknown. First dating scan (date and location): 01/01/2021. Estimated date of delivery (CARLOS) from first dating scan: 08/13/2021. The below data below was generated using the ultrasound CARLOS of 08/13/2021 TECHNIQUE: Real-time scanning was performed of the fetus, with image documentation. Endovaginal scanning: Not performed COMPARISON: 07/19/2021 FINDINGS: A single living intrauterine gestation is present. Presentation: Variable, predominantly vertex Placenta: Placental position is anterior, without previa. Amniotic fluid index: 20.4 cm, within normal limits for gestational age. heart rate: 132 beats per minutes. Maternal cervical canal: Not well seen at late stage of Estimated gestational age from initial scan: 37 weeks 3 days. IMPRESSION: Living late third trimester intrauterine . CHERELLE is 20.4 cm. Reviewed by: Austin Whittington MD on 07/26/2021 3:56 PM PDT Approved by: Austin Whittington MD on 07/26/2021 3:56 PM PDT Station ID: [id number]
== END 2021-07-26 13:55 | disposition home or self-care (01) ==
LOC: DI 13:54
PROVIDERS: ATTEND Obstetrics & Gynecology
DX: O10.913 Unspecified pre-existing hypertension complicating pregnancy, third trimester (principal); Z3A.37 37 weeks gestation of pregnancy

== ENCOUNTER 2021-07-30 14:06 | Outpatient (CLI) | payer MEDICAID ==
[2021-07-30 14:48] VITALS: BP 149/91
--- NOTE | 2021-07-30 18:15 | PROCEDURE REPORT ---
- HPI Current [facility] 08/13/21 Gestation 38 Weeks and 0 Days 3 Para 1 Vital Signs Temperature 98.2 F 07/30/21 14:30 Heart Rate 84 07/30/21 14:30 Respiratory Rate 18 07/30/21 14:30 Blood Pressure 135/89 H 07/30/21 14:30 O2 Saturation 99 07/30/21 14:30 Temperature 98.2 F 07/30/21 14:30 Heart Rate 84 07/30/21 14:47 Respiratory Rate 18 07/30/21 14:47 Blood Pressure 149/91 H 07/30/21 14:47 O2 Saturation 98 07/30/21 14:47 - NST Procedure NST Procedure Start Date 07/30/21 Start Time 14:21 Stop Time 14:52 Vibroacoustic Stimulation Used Yes Patient States Movement Yes 36yo at 38 0/7 with Chronic Hypertension and GDM NST: Baseline 125 with moderate Variability and 15X15 Accelerations. No decelerations. 3 contractions during monitoring. Reactive NST, Category I monitor strip. A-IUP 38 0/7 with Chronic Hypertension and GDM P- Follow-up tomorrow with Dr. Berkowitz as scheduled.
== END 2021-07-30 15:05 | disposition home or self-care (01) ==
LOC: WFO 14:06 → FBP 14:10 → WFO 15:05
PROVIDERS: ATTEND Obstetrics & Gynecology
DX: O10.913 Unspecified pre-existing hypertension complicating pregnancy, third trimester (principal); Z3A.38 38 weeks gestation of pregnancy; O24.419 Gestational diabetes mellitus in pregnancy, unspecified control
CPT/HCPCS: 59025

== ENCOUNTER 2021-07-31 15:26 | Inpatient (IN) | payer MEDICAID ==
[2021-07-31] MEDS ORDERED: LACTATED RINGERS 1,000 ML IV ONE (16:25)
[2021-07-31 16:28] LABS: BASOPHILS % (AUTO) 0.2 %; EOSINOPHILS # (AUTO) 0.3 10^3/uL (0.0-0.7); EOSINOPHILS % (AUTO) 2.5 %; HCT - HEMATOCRIT 35.6 % (37.0-47.0); HGB - HEMOGLOBIN 11.8 g/dL (12.0-16.0); LYMPHOCYTES # (AUTO) 1.6 10^3/uL (1.5-3.5); LYMPHOCYTES % (AUTO) 11.9 %; MEAN CORPUSCULAR HEMOGLOBIN 31.9 pg (27.0-31.0); MEAN CORPUSCULAR HGB CONC 33.1 g/dL (32.0-36.0); MEAN CORPUSCULAR VOLUME 96.2 fL (81.0-99.0); MEAN PLATELET VOLUME 10.7 fL (7.9-10.8); MONOCYTES # (AUTO) 0.6 10^3/uL (0.0-1.0); MONOCYTES % (AUTO) 4.7 %; NEUTROPHILS # (AUTO) 10.4 10^3/uL (1.5-6.6); NEUTROPHILS % (AUTO) 79.4 %; PLT - PLATELET COUNT 282 10^3/uL (130-450); RED CELL DISTRIBUTION WIDTH 14.6 % (12.0-15.0); WHITE BLOOD COUNT 13.1 x10^3/uL (4.8-10.8)
--- NOTE | 2021-07-31 16:32 | HISTORY & PHYSICAL EXAMINATION ---
Admit History - Visit Reason Visit Reason: Contractions (Patient has been feeling cramping this morning. Patient states they have become stronger.) - : 3 Parity: 1 Premature: 0 Ectopic: 0 : 1 Care: positive: Other ([facility]) Risk/History: positive: Previous Complications This : positive: Gestational diabetes, Chronic HTN Smoking Status: Current every day smoker - Mother's Labs Mother's Blood Type: positive: A Mother's RH: positive: Positive Rubella Status: positive: Immune Meds/Allgy - Home Medications Home Medications: Ambulatory Orders Medication Instructions Recorded Confirmed Acetaminophen [Acetaminophen Extra 1,000 mg PO Q8H PRN #60 tablet 07/11/21 Strength] oxyCODONE [Roxicodone] 2.5 - 5 mg PO Q4H PRN #12 tablet 07/11/21 - Allergies Allergies/Adverse Reactions: Allergies Allergy/AdvReac Type Severity Reaction Status Date / Time No Known Drug Allergies Allergy Verified 07/01/17 12:26 Review of Systems - Constitutional Constitutional: denies: Fatigue - Cardiovascular Cariovascular: denies: Irregular heart rate, Palpitations - Respiratory Respiratory: denies: Cough, Sputum production - Gastrointestinal Gastrointestinal: denies: Abdominal pain - Neurological Neurological: denies: General weakness - Psychiatric Psychiatric: denies: Depression Physical - Abdominal Exam Vital Signs: Temp Pulse Resp BP Pulse Ox 98.1 F 93 20 136/90 H 99 07/31/21 15:41 07/31/21 15:41 07/31/21 15:41 07/31/21 15:41 07/31/21 15:41 Contraction Frequency (min/apart): Q 2 to 4 Contraction Intensity: positive: Moderate Uterine Resting Tone: positive: Soft - Monitoring Heart Rate Baseline: 130 Strip Review: positive: Category I - Presentation Presentation: positive: Vertex - Vaginal Exam Membranes: positive: Membranes intact Dilation (in cm): Not examined - Speculum Exam Speculum Exam Performed: positive: No - Other Notes Labor Progress Note/Additional Text: 36 yo at 38 weeks 1/day presented with contractions. Patient states she has had cramping since this morning. Patient reports good movement. Patient denies SROM or vaginal bleeding. O- General: Patient is resting on stretcher with mild stress. She is breathing with some contractions. Chest: Clear to auscultation. Good breath sounds in all flores. Heart: RRR without murmur or gallop. Abdomen: Soft, non-tender to palpation. Moderate to strong contractions palpated. Good bowel sounds in all quadrants. Extremities: 2+ pretibial edema bilaterally. Bilateral pedal edema that is non-pitting. Neuro: Alert and oriented times 3, DTR's +2/+4 Monitor strip: Baseline 130 with moderate variability. Accelerations present. No decelerations. Contractions every 2-4 minute with some coupling present. Category I monitor strip. Discussed with patient that she still desires tubal ligation. Discussed proceeding with Repeat Section. A-IUP 38 11/30, Chronic Hypertension, Gestational Diabetes, Previous Section Desires Tubal Ligation. P- Proceed with Repeat Section and Tubal Ligation due to contractions.
[2021-07-31] MEDS ORDERED: ceFAZolin 2 GM in SODIUM CHLORIDE 0.9% 100ML 100 ML IV ONE (16:33)
[2021-07-31] MEDS ORDERED: CITRIC ACID/SODIUM CITRATE 15 ML UDC PO ONE (16:33)
[2021-07-31 16:35] LABS: CREATININE,URINE 62.4 mg/dL; PROTEIN/CREATININE RATIO,URINE 0.2 (<=0.2)
[2021-07-31 16:37] LABS: ALBUMIN/GLOBULIN RATIO 0.9 (1.0-2.2); BILIRUBIN,TOTAL 0.4 mg/dL (0.2-1.0); CALCIUM 9.5 mg/dL (8.5-10.3); CREATININE 0.8 mg/dL (0.4-1.0); POTASSIUM 3.9 mmol/L (3.5-5.0); TOTAL PROTEIN 6.4 g/dL (6.7-8.2)
--- NOTE | 2021-07-31 16:59 | ANESTHESIA ---
Pre-Anesthesia VS, & Labs - Diagnosis repeat C/S, in labor - Procedure Section, tubal ligation Vital Signs: Temp Pulse Resp BP Pulse Ox 36.7 C 93 20 136/90 H 99 07/31/21 15:41 07/31/21 15:41 07/31/21 15:41 07/31/21 15:41 07/31/21 15:41 Height: 5 ft 2 in Weight (kg): 111.13 kg Body Mass Index: 44.8 BMI Classification: Morbidly Obese - NPO >8 hours - Is Patient ?: Yes - Lab Results Current Lab Results: Laboratory Tests 07/31/21 16:10: Sodium 137, Potassium 3.9, Chloride 106, Carbon Dioxide 20 L, Anion Gap 11.0, BUN 10, Creatinine 0.8, Estimated GFR (MDRD) 82 L, Glucose 118 H , Calcium 9.5, Total Bilirubin 0.4, AST 16, ALT 14, Alkaline Phosphatase 135 H, Total Protein 6.4 L, Albumin 3.0 L, Globulin 3.4, Albumin/Globulin Ratio 0.9 L 07/31/21 16:10: WBC 13.1 H, RBC 3.70 L, Hgb 11.8 L, Hct 35.6 L, MCV 96.2, MCH 31.9 H, MCHC 33.1, RDW 14.6, Plt Count 282, MPV 10.7, Neut # (Auto) 10.4 H, Lymph # (Auto) 1.6, [place] # (Auto) 0.6, Eos # (Auto) 0.3, Baso # (Auto) 0.0, Absolute Nucleated RBC 0.00, Nucleated RBC % 0.0 Fish Bones: 07/31/21 16:10 07/31/21 16:10 Home Medications and Allergies Active Medications Lactated Ringer's (Lr) 1,000 mls @ 125 mls/hr IV .Q8H BAYRON Last Admin: 07/31/21 16:26 Dose: 125 mls/hr Documented by: Cefazolin Sodium 2 gm/ Sodium (Chloride) 100 mls @ 200 mls/hr IV ONCE ONE Stop: 07/31/21 17:02 Allergies/Adverse Reactions: Allergies Allergy/AdvReac Type Severity Reaction Status Date / Time No Known Drug Allergies Allergy Verified 07/01/17 12:26 Anes History & Medical History - Anesthetic History Anesthesia Complications: reports: Other-see comment (seizure after epidural, went to [place]) - Medical History Cardiovascular: reports: None Pulmonary: reports: None Gastrointestinal: reports: None Urinary: reports: Kidney stones Endocrine/Autoimmune: reports: None Smoking Status: Current every day smoker - Surgical History Gynecologic: reports: section - Obstetrical History : 3 Parity: 1 Events: reports: Previous Complications: reports: Gestational diabetes, Chronic HTN Exam General: Alert, Oriented x3 Dental: WNL Mouth Opening: Greater than 4 Fingerbreadths Neck Mobility: Normal Mallampati classification: III Thyromental Distance: greater than 6 cm Respiratory: Lungs clear Cardiovascular: Regular rate Plan Anesthesia Type: Spinal, Transverse Abdominis Plane (TAP) Block Consent for Procedure(s) Verified and Reviewed: Yes Code Status: Attempt Resuscitation ASA classification: 3-Severe systemic disease Is this case an emergency?: Yes
[2021-07-31] MEDS ORDERED: ePHEDrine 50 MG/ML VIAL IVP PRN (17:00)
[2021-07-31] MEDS ORDERED: fentaNYL 100 MCG/2 ML VIAL IVP PRN (17:00)
[2021-07-31] MEDS ORDERED: ATROPINE ABBOJECT 1 MG/10 ML SYRINGE IVP PRN (17:00)
[2021-07-31] MEDS ORDERED: MORPHINE 2 MG/ML CARPUJECT IVP PRN (17:00)
[2021-07-31] MEDS ORDERED: METOCLOPRAMIDE 10 MG/2 ML VIAL IVP PRN (17:00)
[2021-07-31] MEDS ORDERED: LACTATED RINGERS 1,000 ML IV SCH ×2 (17:00)
[2021-07-31] MEDS ORDERED: ONDANSETRON 4 MG/2 ML VIAL IVP PRN ×2 (17:00→19:09)
[2021-07-31] MEDS ORDERED: NALOXONE 0.4 MG/ML VIAL IVP PRN (17:00)
[2021-07-31] MEDS ORDERED: HYDROmorphone 0.5 MG/0.5 ML SYRINGE IVP PRN (17:00)
[2021-07-31] MEDS ORDERED: OXYTOCIN 10 UNIT/ML VIAL ONE ×2 (18:25→18:41)
[2021-07-31] MEDS ORDERED: ROPIVACAINE 0.5% PF 20 ML AMPULE ONE (18:27)
[2021-07-31] MEDS ORDERED: fentaNYL 100 MCG/2 ML VIAL ONE (18:55)
[2021-07-31] MEDS ORDERED: diphenhydrAMINE 25 MG CAPSULE PO PRN (19:09)
[2021-07-31] MEDS ORDERED: ZOLPIDEM 5 MG TABLET PO PRN (19:09)
[2021-07-31] MEDS ORDERED: SODIUM CHLORIDE FLUSH 0.9% 10 ML SYRINGE IVP PRN (19:09)
[2021-07-31] MEDS ORDERED: HYDROCORTISONE 1% CREAM 28 GM TUBE PR PRN (19:09)
[2021-07-31] MEDS ORDERED: OXYTOCIN/SODIUM CHLORIDE 500 ML IV PRN (19:09)
[2021-07-31] MEDS ORDERED: WITCH HAZEL/GLYCERIN 1 PAD TOP PRN (19:09)
[2021-07-31] MEDS ORDERED: LACTATED RINGERS 800 ML IV ONE (19:30)
--- NOTE | 2021-07-31 19:30 | OPERATIVE REPORT ---
Operative Report - General Admit Date: 07/31/21 Procedure Date: 07/31/21 Planned Procedure: Repeat low transverse Bilateral salpingectomy Pre-Op Diagnosis: IUP at 38+1, hx of prior CS, early labor, CHTN, A1DM, desires sterilization Procedure Performed: Repeat low transverse Bilateral salpingectomy Post Op Diagnosis: Same and delivery of term gestation, LGA - Procedure Note Primary Surgeon: Roberta Berkowitz MD Secondary Surgeon: Adrianna Flores MD Anesthesia Provider: Rabia Cannon CRNA Anesthesia Technique: Spinal Pathology: Placenta for routine discard Fallopian tubes to pathology as single specimen IV Fluids (mL): 1,900 (see anesthesia record) Estimated Blood Loss (mL): 1,000 Urine Output (mL): 30 Indications: 36 yo at 38 1/7 with history of prior , and affected by chronic hypertension, gestational diabetes presented in early labor. Confirmed desire for sterilization and confirmed [facility] consents had been signed. Findings: Normal appearing gravid uterus with anterior placenta, normal fallopian tubes with filmy adhesions to ovaries and uterus, and normal appearing ovaries. Male delivered from vertex presentation with weight and Apgars pending. Complications: None - Other Other Information/Narrative: Risks benefits and alternatives of the procedure were discussed. Written informed consent was obtained. Patient was taken to the operating room where spinal anesthesia was placed and found to be adequate. She was prepped and draped in the usual sterile fashion in the dorsal supine position with a leftward tilt. Esparza catheter was in place. SCDs were in place and activated. Cefazolin 2 g IV was given as a preoperative antibiotic. Preoperative timeout was performed. A Pfannenstiel incision was made in the skin with a scalpel and carried through the underlying layer of fascia in a combination of sharp and blunt dissection. The fascia was incised in the midline, and the incision was extended laterally with the Elizabeth scissors. The superior aspect of the fascial incision was grasped with the Gilberto clamps, elevated, and the underlying rectus muscles were dissected off bluntly and sharply using the scalpel. Attention was then turned to the inferior aspect of the incision which in a similar fashion was grasped, tented up with Gilberto clamps, and the underlying rectus muscles dissected off bluntly and sharply using the scalpel. The rectus muscles were then in the midline. The peritoneum was identified, tented up, and entered bluntly. The peritoneal incision was extended superiorly and inferiorly with good visualization of the bladder. The bladder that blade was then inserted. A bladder flap was not created. The lower uterine segment of the uterus was identified, and incised in a transverse fashion with a scalpel. The uterus was entered bluntly. The uterine incision was extended in a craniocaudal fashion by manual stretch. The bladder blade was removed. The infant was delivered from from vertex position. Baby was wrapped in a warm sterile towel. Delayed cord clamping was performed. After delay of one minute, the cord was clamped x2 and cut. The was handed off to the waiting pediatricians. The placenta was removed with manual expression. The uterus was exteriorized and cleared of all clots clots and debris via manual swipe using Ray-Jennifer x2. The uterine incision was then repaired in a running locked fashion using 0 Vicryl suture. The incision was reinforced with a running imbricating layer again using 0-Vicryl suture. Excellent hemostasis was obtained. Attention was then turned to the salpingectomy portion of the procedure. The left Fallopian tube was grasped with [place] clamps and elevated. It was resected from the underlying mesosalpinx with the LigaSure bipolar sealing and cutting device until the insertion point at the uterine cornua was met. At that point, the fallopian tube was sealed and transected at its insertion point into the uterine cornua. The tube was removed from the field. This process was repeated on the right side. Both tubes were sent in a single specimen to Pathology. The uterus was returned to the abdomen. The gutters were cleared of all clots and debris. The pelvis was irrigated with sloppy wet lap sponges. The uterine defect was well visualized in normal anatomic position it was noted again to be hemostatic. The peritoneum was then reapproximated with 2-0 Vicryl in a running fashion. The rectus muscles were then reapproximated using interrupted [id number] sutures using 2-0 Chromic. Good hemostasis was noted. The fascia was then closed using 0 Vicryl in a running fashion starting from the left lateral edge to the midline. A second suture was used to close the fascia in a running fashion starting from the right lateral edge and meeting in the midline, agian using 0-Vicryl. The subcutaneous tissue was then irrigated and closed using 2-0 chromic in a running subcutaneous suture. Skin was closed in a running subcuticular suture using 4-0 Monocryl. Steri-Strips were applied to reinforce the incision and dressing was applied. Procedure was well-tolerated and without complication. Sponge lap and needle counts were correct x2. Patient was taken to recovery room in stable condition. Dr. Flores assisted with retraction, delivery of the , and suturing.
--- NOTE | 2021-07-31 20:28 | ANESTHESIA POST OP EVALUATION ---
Anesthesia Post Eval - Post Anesthesia Eval Vitals: Last Vital Signs Temp 36.3 C L 07/31/21 20:00 Pulse 67 07/31/21 20:00 Resp 16 07/31/21 20:00 BP 157/97 H 07/31/21 20:00 Pulse Ox 99 07/31/21 20:00 CV Function Including HR & BP: Stable Pain Control: Satisfactory Nausea & Vomiting: Negative Mental Status: Baseline Respiratory Status: Airway Patent Hydration Status: Satisfactory Anesthesia Complications: None
[2021-07-31] MEDS: LABETALOL 100 MG TABLET PO SCH (21:23)
[2021-07-31] MEDS ORDERED: NICOTINE 21 MG PATCH TOP ONE (21:49)
[2021-07-31] MEDS ORDERED: HYDROmorphone PCA 20MG/100ML IV PRN (21:54)
[2021-07-31] MEDS: LACTATED RINGERS 1,000 ML IV SCH (23:32)
[2021-08-01] MEDS: KETOROLAC 30 MG/ML VIAL IVP SCH ×4 (01:16→13:33)
[2021-08-01] MEDS: LACTATED RINGERS 1,000 ML IV SCH ×2 (04:30→18:05)
[2021-08-01 07:14] LABS: BASOPHILS % (AUTO) 0.3 %; EOSINOPHILS # (AUTO) 0.3 10^3/uL (0.0-0.7); EOSINOPHILS % (AUTO) 2.3 %; HCT - HEMATOCRIT 30.4 % (37.0-47.0); HGB - HEMOGLOBIN 9.8 g/dL (12.0-16.0); LYMPHOCYTES % (AUTO) 14.4 %; MEAN CORPUSCULAR HEMOGLOBIN 31.8 pg (27.0-31.0); MEAN CORPUSCULAR HGB CONC 32.2 g/dL (32.0-36.0); MEAN CORPUSCULAR VOLUME 98.7 fL (81.0-99.0); MEAN PLATELET VOLUME 10.5 fL (7.9-10.8); MONOCYTES # (AUTO) 0.8 10^3/uL (0.0-1.0); MONOCYTES % (AUTO) 5.4 %; NEUTROPHILS # (AUTO) 10.6 10^3/uL (1.5-6.6); NEUTROPHILS % (AUTO) 76.6 %; PLT - PLATELET COUNT 239 10^3/uL (130-450); RED BLOOD COUNT 3.08 10^6/uL (4.20-5.40); RED CELL DISTRIBUTION WIDTH 14.8 % (12.0-15.0); WHITE BLOOD COUNT 13.8 x10^3/uL (4.8-10.8)
[2021-08-01] MEDS: SIMETHICONE CHEW 80 MG TABLET PO SCH ×4 (07:16→20:24)
[2021-08-01] MEDS: SODIUM CHLORIDE FLUSH 0.9% 10 ML SYRINGE IVP SCH ×4 (07:27→20:56)
[2021-08-01] MEDS: NICOTINE 21 MG PATCH TOP SCH ×2 (09:58→20:09)
[2021-08-01] MEDS: LABETALOL 100 MG TABLET PO SCH ×2 (12:04→20:24)
[2021-08-01] MEDS: ACETAMINOPHEN 325 MG TABLET PO PRN ×3 (12:50→20:44)
[2021-08-01] MEDS: oxyCODONE 5 MG TABLET PO PRN ×3 (12:50→20:57)
[2021-08-01] MEDS: DOCUSATE SODIUM 250 MG CAPSULE PO SCH ×2 (13:34→20:24)
[2021-08-01] MEDS: IBUPROFEN 600 MG TABLET PO SCH (19:29)
[2021-08-01] MEDS ORDERED: NICOTINE 21 MG PATCH TOP SCH (20:40)
[2021-08-01 21:13] LABS: MUDS CUTOFF CONCENTRATIONS CUTOFF CONC BELOW:
[2021-08-01 21:35] LABS: AMPHETAMINE SCREEN,URINE NEGATIVE (NEGATIVE); BARBITURATE SCREEN,UR NEGATIVE (NEGATIVE); BENZODIAZEPINES SCREEN, URINE NEGATIVE (NEGATIVE); COCAINE SCREEN URINE NEGATIVE (NEGATIVE); METHADONE SCREEN, URINE NEGATIVE (NEGATIVE); METHAMPHETAMINES SCREEN, URINE NEGATIVE (NEGATIVE); OPIATE SCREEN, URINE POSITIVE (NEGATIVE); THC CANNABINOID SCREEN, URINE NEGATIVE (NEGATIVE); TRICYCLIC ANTIDEPRESSANT,URINE NEGATIVE (NEGATIVE)
[2021-08-01 21:36] LABS: OXYCODONE SCREEN, URINE POSITIVE (NEGATIVE); PROPOXYPHENE SCREEN, URINE NEGATIVE (NEGATIVE)
[2021-08-02] MEDS: ACETAMINOPHEN 325 MG TABLET PO PRN ×5 (00:48→18:02)
[2021-08-02] MEDS: oxyCODONE 5 MG TABLET PO PRN ×5 (00:49→18:02)
[2021-08-02] MEDS: IBUPROFEN 600 MG TABLET PO SCH ×3 (01:32→14:31)
[2021-08-02] MEDS: SIMETHICONE CHEW 80 MG TABLET PO SCH ×2 (07:32→14:30)
[2021-08-02] MEDS: LABETALOL 100 MG TABLET PO SCH (09:32)
[2021-08-02] MEDS: DOCUSATE SODIUM 250 MG CAPSULE PO SCH (09:33)
--- NOTE | 2021-08-02 10:49 | PROVIDER PROGRESS NOTE ---
Subjective - Prog Note Date Prog Note Date: 08/01/21 Prog Note Time: 11:30 - Subjective Subjective: Patient is doing well. Pain is well managed but would like to transition from KEYLINER to oral medications. Tolerating po. Has been up and ambulating and voiding. BF going very well. Objective - Vital Signs/Intake & Output Reviewed Vital Signs: Yes Vital Signs: Vital Signs x48h Temp Pulse Resp BP Pulse Ox 08/02/21 09:35 97.9 F 94 18 149/91 H 08/02/21 05:30 98.4 F 83 20 143/78 H 97 Intake & Output: Intake & Output 07/30/21 07/31/21 08/01/21 08/02/21 23:59 23:59 23:59 23:59 Intake Total 660 5019 Output Total 110 1453 Balance 550 3566 - Objective General Appearance: positive: No acute distress Respiratory: positive: No respiratory distress, Breath sounds nml Cardiovascular: positive: Regular rate & rhythm Abdomen: positive: Other (FF below umbi. Appropriately tender Dressing CDI) Skin: positive: Color nml Neurologic/Psychiatric: positive: Oriented x3 - Lab Results Fish Bones: 08/01/21 07:01 07/31/21 16:10 Other Labs: Lab Results x24hrs 08/01/21 Range/Units 21:00 Urine Opiates Screen POSITIVE H (NEGATIVE) Ur Oxycodone Screen POSITIVE H (NEGATIVE) Urine Methadone Screen NEGATIVE (NEGATIVE) Ur Propoxyphene Screen NEGATIVE (NEGATIVE) Ur Barbiturates Screen NEGATIVE (NEGATIVE) Ur Tricyclics Screen NEGATIVE (NEGATIVE) Ur Phencyclidine Scrn NEGATIVE (NEGATIVE) Ur Amphetamine Screen NEGATIVE (NEGATIVE) U Methamphetamines Scrn NEGATIVE (NEGATIVE) U Benzodiazepines Scrn NEGATIVE (NEGATIVE) Urine Cocaine Screen NEGATIVE (NEGATIVE) U Cannabinoids Screen NEGATIVE (NEGATIVE) Assessment/Plan - Problem List (1) deliv NOS-unsp Impression: POD#1: s/p RLTCS and BTL Doing well Transition to po pain meds Cont with routine post op care Anticipate DC home POD#2 pm
--- NOTE | 2021-08-02 10:51 | PROVIDER PROGRESS NOTE ---
Subjective - Prog Note Date Prog Note Date: 08/02/21 Prog Note Time: 10:51 - Subjective Subjective: Patient is up and ambulating, tolerating po, pain well managed, voiding. BF going well. NOTE: Patient is restricting her use of narcotic pain medications due to the questions raised regarding tox screen. Wants to avoid any further questions about substance use. Patient had a positive screen for THC in early . As a result, a urine sample was sent on the 's urine that returned positive for methamphetamine. Patient has been open about occasional use of marijuana as well as tobacco during . Patient tox screen returned positive for hospital administered opioids only; not positive for marijuana or methamphetamines. Patient volunteered to have testing done immediately upon learning of infant tox screen results. Patient also volunteered to have the FOB tested. Objective - Vital Signs/Intake & Output Reviewed Vital Signs: Yes Vital Signs: Vital Signs x48h Temp Pulse Resp BP Pulse Ox 08/02/21 09:35 97.9 F 94 18 149/91 H 08/02/21 05:30 98.4 F 83 20 143/78 H 97 Intake & Output: Intake & Output 07/30/21 07/31/21 08/01/21 08/02/21 23:59 23:59 23:59 23:59 Intake Total 660 5019 Output Total 110 1453 Balance 550 3566 - Objective General Appearance: positive: No acute distress Respiratory: positive: No respiratory distress, Breath sounds nml Cardiovascular: positive: Regular rate & rhythm Abdomen: positive: Other (soft and appropriately tender. Dressing CDI. Dressing removed and incision line is CDI) Back: positive: Nml inspection Skin: positive: Color nml, No rash, Warm, Dry Extremities: positive: Non-tender, Other (mild BLE edema, no calf tenderness) Neurologic/Psychiatric: positive: Oriented x3 - Lab Results Fish Bones: 08/01/21 07:01 07/31/21 16:10 Other Labs: Lab Results x24hrs 08/01/21 Range/Units 21:00 Urine Opiates Screen POSITIVE H (NEGATIVE) Ur Oxycodone Screen POSITIVE H (NEGATIVE) Urine Methadone Screen NEGATIVE (NEGATIVE) Ur Propoxyphene Screen NEGATIVE (NEGATIVE) Ur Barbiturates Screen NEGATIVE (NEGATIVE) Ur Tricyclics Screen NEGATIVE (NEGATIVE) Ur Phencyclidine Scrn NEGATIVE (NEGATIVE) Ur Amphetamine Screen NEGATIVE (NEGATIVE) U Methamphetamines Scrn NEGATIVE (NEGATIVE) U Benzodiazepines Scrn NEGATIVE (NEGATIVE) Urine Cocaine Screen NEGATIVE (NEGATIVE) U Cannabinoids Screen NEGATIVE (NEGATIVE) Assessment/Plan - Problem List (1) deliv NOS-unsp Impression: PPD#2: Patient is meeting goals for discharge Awaiting assessment from SW and CPS for dispo Routine discharge instructions given Mild range BPs, continue labetalol at 200 mg po bid Encouraged patient to use pain medications as indicated given that she has undergone significant surgical intervention DISPO PENDING SW/CPS EVALUATION: Note that maternal tox screen was negative for both marijuana and methamphetamine. Patient has been highly compliant with care during course of , including additional screenings and us required 2/2 complications related to CHTN and A1DM. FOB has been present at nearly all visits that he was able to attend within the confines of pandemic restrictions. Patient has been open and honest regarding all behaviors during the course of t he and has been highly appropriate regarding care and well being of infant. Of note, patient has had rapid up titration of labetalol dosing within the last week due to increases in blood pressure, common in late affected by CHTN. Medical literature has demonstrated false positive methamphetamine tox screen results in the setting of labetalol/beta juancho use, particularly in setting of up-tiration in dosing. False positive amphetamine toxicology screen results in three women using labetalol. Obstetrics & Gynecology: December 2010 - Volume 117 - Issue 2 Part 2 - p [phone] A Case of Esmolol-Induced False-Positive Amphetamine Urine Drug Test. Belkis GASPAR, Cynthia A, Soto J, Katheryn R, Phuc R. Cureus. 2020Nov 25;13(1):b49396. doi: 10.7759/cureus.26000. False positive amphetamines and 3,4-methylenedioxymethamphetamine immunoassays in the presence of metoprolol-two cases reported in clinical toxicology. Zack Klein, Pippa Klein, Eli Escobar, Alvino E, Leo H, Matt B, Lance Dean. J Anal Toxicol. 2019Jan 28;44(2):200-205. doi: 10.1093/[email or web address]. High suspicion that tox screen was positive as a result of labetalol exposure, particularly given that maternal tox screens were negative for methamphetamine both in early and post .
[2021-08-02 16:19] VITALS: BP 141/83
--- NOTE | 2021-08-02 17:26 | Discharge Plan ---
Discharge Plan Problem Reviewed?: Yes Disposition: 01 Home, Self Care Condition: Good Diet: Regular Activity Restrictions: Additional Comments (Nothing in the vagina for 6 weeks: No intercourse, tampons, douching Call for: -Fever greater than 100.5 - Pain that does not improve with pain medication -Heavy bleeding in which you are soaking a pad an hour for 2 hours in a row -Incision becomes hot, hard, red, starts to open, or) Shower Restrictions: Yes Assessment: DC MEDICATIONS: Ibuprofen 600 mg by mouth every 6 hours as needed for pain Acetaminophen 500-1000 mg by mouth every 8 hours as needed for pain Docusate 100-200 mg by mouth twice a day as needed for constipation Oxycodone 2.5-5 mg by mouth every 4 hours as needed for pain Continue labetalol 200 mg by mouth twice a day Hold medication if top number is less than 120 or botton number is less than 70 Additional Instructions or Follow Up instructions: SHOWERING: Ok to shower. Let water run over the incision. Do not soap, scrub, or apply lotion. Pat dry with a clean towel or use a inspector hairspring. WOUND CARE: The surgical stickers will start to peel off and you can remove them when they do. Otherwise, the provider will remove them at your one week follow-up appointment. OK to use an unscented sanitary napkin or clean washcloth to keep the incision dry if the belly folds over the incision LIFTING: No lifting more than 10# for 4 weeks DRIVING: No driving while on narcotics No Smoking: If you smoke, Please STOP! Call for help. Follow-up with: Zehra Berkowitz MD [Provider Admit Priv/Credential] -
--- NOTE | 2021-08-16 15:34 | DISCHARGE SUMMARY ---
"Discharge Summary Admit Date: 07/31/21 Discharge Date: 08/02/21 Discharging Provider: Woo Code Status: Attempt Resuscitation Condition at Discharge: Good Discharge Disposition: 01 Home, Self Care - DIAGNOSES Admission Diagnoses: IUP at 38+1 wga Chronic hypertension Gestational diabetes Hx of prior Advanced maternal age Desires sterilization Early labor Discharge Diagnoses with Status of Each Condition: Same and delivery of term gestation - HPI History of Present Illness: 36 yo at 38 weeks 1/day presented with contractions. affected by chronic hypertension with increase in blood pressures within the last week requiring increase in daily labetalol dosing. Diabetes has been well controlled with diet. Monitor strip: Baseline 130 with moderate variability. Accelerations present. No decelerations. Contractions every 2-4 minute with some coupling present. Category I monitor strip. Patient confirmed desire for tubal ligation. - CONSULTS | PROCEDURES Procedures: Repeat low transverse and bilateral tubal ligation - HOSPITAL COURSE Hospital Course: Patient was admitted in early labor at 38+1 wga. Given history of prior c- section, the decision was made to proceed with repeat low transverse and bilateral salpingectomy. Procedure was well tolerated and without complication. Patient delivered a viable male weighing 4425 g with Apgars of 8/9. Post-operative course was uncomplicated. CHTN: Blood pressures were well maintained in normal to mild range on labetalol 200 mg po bid. Pre-delivery dosage was 300 mg of labetalol twice daily. A1DM: Profiling of maternal blood sugars not indicated in post period. Will need 2H GTT at 6 weeks . SOCIAL: Pediatrics team opted to run a urine toxicology screen on infant due to mother's use of THC in early . screen was positive for methamphetamine. Maternal screen was negative for all components of toxicology screen (including THC) other than the opioids administered as post-surgical pain regimen. Confirmatory screening of meconium was negative for methamphetamine, indicating that the initial screens were a false positive. It is documented in the medical literature that beta blockers can produce metabolites that can be falsely read as methamphetamine metabolites. Patient did increase labetalol dosage three fold in the week prior to delivery. *False positive amphetamine toxicology screen results in three women using labetalol. Obstetrics & Gynecology: December 2010 - Volume 117 - Issue 2 Part 2 - p [phone] *A Case of Esmolol-Induced False-Positive Amphetamine Urine Drug Test. Belkis GASPAR, Cynthia Zhao, Katheryn Childers, Phuc Torres. Cureus. 2020Nov 25;13(1):z08499. doi: 10.7759/cureus.75980. *False positive amphetamines and 3,4-methylenedioxymethamphetamine immunoassays in the presence of metoprolol-two cases reported in clinical toxicology. Zack Klein, Pippa Klein, Eli Escobar, Alvino Flaherty, Leo Lopez, Matt B, Labat L. J Anal Toxicol. 2019Jan 28;44(2):200-205. doi: 10.1093/[email or web address]. High suspicion that tox screen was positive as a result of labetalol exposure, particularly given that maternal tox screens were negative for methamphetamine both in early and post . By POD#2, patient was meeting goals for discharge. Rh positive/Rubella immune - ALLERGIES Allergies/Adverse Reactions: Allergies Allergy/AdvReac Type Severity Reaction Status Date / Time No Known Drug Allergies Allergy Verified 08/10/21 17:40 - MEDICATIONS Home Medications: Ambulatory Orders Medication Instructions Recorded Confirmed LORazepam [Ativan] 1 mg PO TID PRN #12 tablet 08/10/21 Labetalol [Trandate] 100 mg PO BID 08/10/21 08/10/21 NIFEdipine [Procardia Xl] 30 mg PO DAILY 08/10/21 08/10/21 hydrOXYzine HCL [Hydroxyzine HCl] 25 mg PO QID PRN 08/10/21 08/10/21 LORazepam [Lorazepam] 1 mg PO Q6H PRN #30 tablet 08/17/21 - LABS Result Diagrams: 08/01/21 07:01 07/31/21 16:10 - FOLLOW UP Follow Up: [address] Berkowitz - TIME SPENT Time Spent in Discharge (Minutes): 30"
== END 2021-08-02 18:10 | disposition home or self-care (01) | DRG 785 ==
LOC: WFO 15:26 → FBP 15:28 → WFO 16:27 → FBP 16:29
PROVIDERS: ADMIT Obstetrics & Gynecology; ATTEND Obstetrics & Gynecology
PROC: 0UT70ZZ Resection of Bilateral Fallopian Tubes, Open Approach (ICD-10-PCS; 2021-07-31)
PROC: 10D00Z1 Extraction of Products of Conception, Low, Open Approach (ICD-10-PCS; principal; 2021-07-31 17:00)
DX: O34.211 Maternal care for low transverse scar from previous cesarean delivery (principal); O16.4 Unspecified maternal hypertension, complicating childbirth; Z3A.38 38 weeks gestation of pregnancy; Z37.0 Single live birth; O24.420 Gestational diabetes mellitus in childbirth, diet controlled; Z30.2 Encounter for sterilization; O99.320 Drug use complicating pregnancy, unspecified trimester; O99.334 Smoking (tobacco) complicating childbirth; F17.200 Nicotine dependence, unspecified, uncomplicated; O99.214 Obesity complicating childbirth; E66.01 Morbid (severe) obesity due to excess calories
CPT/HCPCS: 36415; 80053; 80306; 82570; 84156; 85025; 86850; 86900; 86901; 99213; A9270; J7120

== ENCOUNTER 2021-08-06 16:56 | Inpatient (IN) | payer MEDICAID ==
[2021-08-06 17:31] LABS: BASOPHILS # (AUTO) 0.1 10^3/uL (0.0-0.1); BASOPHILS % (AUTO) 0.5 %; EOSINOPHILS # (AUTO) 0.4 10^3/uL (0.0-0.7); EOSINOPHILS % (AUTO) 3.9 %; HCT - HEMATOCRIT 35.8 % (37.0-47.0); HGB - HEMOGLOBIN 11.6 g/dL (12.0-16.0); LYMPHOCYTES # (AUTO) 1.9 10^3/uL (1.5-3.5); LYMPHOCYTES % (AUTO) 17.1 %; MEAN CORPUSCULAR HEMOGLOBIN 31.5 pg (27.0-31.0); MEAN CORPUSCULAR HGB CONC 32.4 g/dL (32.0-36.0); MEAN CORPUSCULAR VOLUME 97.3 fL (81.0-99.0); MEAN PLATELET VOLUME 8.9 fL (7.9-10.8); MONOCYTES # (AUTO) 0.6 10^3/uL (0.0-1.0); MONOCYTES % (AUTO) 5.7 %; NEUTROPHILS # (AUTO) 7.9 10^3/uL (1.5-6.6); NEUTROPHILS % (AUTO) 72.2 %; PLT - PLATELET COUNT 467 10^3/uL (130-450); RED BLOOD COUNT 3.68 10^6/uL (4.20-5.40); RED CELL DISTRIBUTION WIDTH 13.8 % (12.0-15.0)
[2021-08-06] MEDS: NIFEdipine ER 30 MG TABLET PO SCH (17:40)
[2021-08-06 17:43] LABS: ALBUMIN 3.3 g/dL (3.2-5.5); ALBUMIN/GLOBULIN RATIO 0.9 (1.0-2.2); BILIRUBIN,TOTAL 0.7 mg/dL (0.2-1.0); CALCIUM 9.3 mg/dL (8.5-10.3); CREATININE 0.9 mg/dL (0.4-1.0)
--- NOTE | 2021-08-06 18:00 | PROVIDER PROGRESS NOTE ---
Subjective - Prog Note Date Prog Note Date: 08/06/21 Prog Note Time: 17:58 - Subjective Pt reports feeling: Improved (36yo Post op day #7 from Repeat Section. Patient seen in clinic today and had elevated blood pressure so she was sent over to Labor and Delivery for evaluation.) Objective - Vital Signs/Intake & Output Reviewed Vital Signs: Yes Vital Signs: Vital Signs x48h Pulse Resp BP BP 08/06/21 17:45 148/91 H 08/06/21 17:30 153/92 H 08/06/21 17:15 151/89 H 08/06/21 17:06 85 20 174/115 H - Objective General Appearance: positive: Moderate distress Eyes Bilateral: positive: Normal inspection Cardiovascular: positive: Regular rate & rhythm, No murmur, No gallop Abdomen: positive: Non-tender, Nml bowel sounds Extremities: positive: No pedal edema. negative: Calf tenderness Neurologic/Psychiatric: positive: Oriented x3, Mood/affect nml Reflexes: Knee (L): 2+ - Lab Results Fish Bones: 08/06/21 17:23 08/06/21 17:23 Other Labs: Lab Results x24hrs 08/06/21 08/06/21 08/06/21 Range/Units 17:23 17:23 17:23 WBC 11.0 H (4.8-10.8) x10^3/uL RBC 3.68 L (4.20-5.40) 10^6/uL Hgb 11.6 L (12.0-16.0) g/dL Hct 35.8 L (37.0-47.0) % MCV 97.3 (81.0-99.0) fL MCH 31.5 H (27.0-31.0) pg MCHC 32.4 (32.0-36.0) g/dL RDW 13.8 (12.0-15.0) % Plt Count 467 H (130-450) 10^3/uL MPV 8.9 (7.9-10.8) fL Neut # (Auto) 7.9 H (1.5-6.6) 10^3/uL Lymph # (Auto) 1.9 (1.5-3.5) 10^3/uL Mobile # (Auto) 0.6 (0.0-1.0) 10^3/uL Eos # (Auto) 0.4 (0.0-0.7) 10^3/uL Baso # (Auto) 0.1 (0.0-0.1) 10^3/uL Absolute Nucleated RBC 0.00 x10^3/uL Nucleated RBC % 0.0 /100WBC Sodium 138 (135-145) mmol/L Potassium 4.0 (3.5-5.0) mmol/L Chloride 104 (101-111) mmol/L Carbon Dioxide 23 (21-32) mmol/L Anion Gap 11.0 (6-13) BUN 15 (6-20) mg/dL Creatinine 0.9 (0.4-1.0) mg/dL Estimated GFR (MDRD) 71 L (>89) Glucose 86 (70-100) mg/dL Uric Acid 7.0 (2.6-7.2) mg/dL Calcium 9.3 (8.5-10.3) mg/dL Total Bilirubin 0.7 (0.2-1.0) mg/dL AST 20 19 (10-42) IU/L ALT 24 (10-60) IU/L Alkaline Phosphatase 109 (42-121) IU/L Lactate Dehydrogenase (91-225) IU/L Total Protein 7.0 (6.7-8.2) g/dL Albumin 3.3 (3.2-5.5) g/dL Globulin 3.7 (2.1-4.2) g/dL Albumin/Globulin Ratio 0.9 L (1.0-2.2) 08/06/21 Range/Units 17:23 WBC (4.8-10.8) x10^3/uL RBC (4.20-5.40) 10^6/uL Hgb (12.0-16.0) g/dL Hct (37.0-47.0) % MCV (81.0-99.0) fL MCH (27.0-31.0) pg MCHC (32.0-36.0) g/dL RDW (12.0-15.0) % Plt Count (130-450) 10^3/uL MPV (7.9-10.8) fL Neut # (Auto) (1.5-6.6) 10^3/uL Lymph # (Auto) (1.5-3.5) 10^3/uL Mobile # (Auto) (0.0-1.0) 10^3/uL Eos # (Auto) (0.0-0.7) 10^3/uL Baso # (Auto) (0.0-0.1) 10^3/uL Absolute Nucleated RBC x10^3/uL Nucleated RBC % /100WBC Sodium (135-145) mmol/L Potassium (3.5-5.0) mmol/L Chloride (101-111) mmol/L Carbon Dioxide (21-32) mmol/L Anion Gap (6-13) BUN (6-20) mg/dL Creatinine (0.4-1.0) mg/dL Estimated GFR (MDRD) (>89) Glucose (70-100) mg/dL Uric Acid (2.6-7.2) mg/dL Calcium (8.5-10.3) mg/dL Total Bilirubin (0.2-1.0) mg/dL AST (10-42) IU/L ALT (10-60) IU/L Alkaline Phosphatase (42-121) IU/L Lactate Dehydrogenase 175 (91-225) IU/L Total Protein (6.7-8.2) g/dL Albumin (3.2-5.5) g/dL Globulin (2.1-4.2) g/dL Albumin/Globulin Ratio (1.0-2.2) - Other Results/Comments Other Results/Comments: Patient states she is doing well, but is emotionally stressed due to nature of CPS visit and that her 16yo son has to be interviewed at school. Patient is very aware the stress is driving her blood pressure up. Patient was told she would have to go to drug and alcohol classes and she does not drink alcohol and does not use illegal drugs. She appears to be in good spirits despite the stress all of this is causing her. A- POD#6 Repeat LTCS with Chronic Hypertension. P- Lab work is normal. Blood pressure remains Elevated even after Procardia 30mg XL. Patient will be admitted for Pre-Eclampsia with severe features.
[2021-08-06 18:23] LABS: CREATININE,URINE 32.1 mg/dL
[2021-08-06 18:38] LABS: TOTAL PROTEIN,URINE TIMED < 6 mg/dL
[2021-08-06] MEDS ORDERED: MAGNESIUM SULFATE 4 GRAM 4 GM/50 ML BAG IV ONE ×3 (18:41→19:39)
[2021-08-06] MEDS ORDERED: ONDANSETRON 4 MG/2 ML VIAL IVP PRN (19:04)
[2021-08-06] MEDS ORDERED: SIMETHICONE CHEW 80 MG TABLET PO PRN (19:04)
[2021-08-06] MEDS ORDERED: oxyCODONE 5 MG TABLET PO PRN (19:17)
[2021-08-06] MEDS ORDERED: MAGNESIUM SULFATE 2 GRAM 2 GM/50 ML BAG IV ONE (19:27)
--- NOTE | 2021-08-06 19:28 | HISTORY & PHYSICAL EXAMINATION ---
Chief Complaint - Chief Complaint Chief Complaint: Elevated Blood pressure in clinic History of Present Illness - Admitted From Admitted From:: Labor and Delivery Triage area. - History Obtained From History obtained from: Patient Exam Limitations: None - History of Present Illness HPI Comment/Other: 36yo POD#6 Repeat Low Transverse Section with History of Chronic Hypertension. Patient presented to clinic today with elevated blood pressures. Patient sent to Labor and Delivery with Elevated blood pressures. Patient is ambulating, urinating, tolerating a regular diet and Breast feeding. Patient sustained Systolic pressures in the Severe Range. History - Past Medical History Cardiovascular: reports: Hypertension Respiratory: reports: None Neuro: reports: None Endocrine/Autoimmune: reports: None GI: reports: None RESPIRATORY PRACTITIONER: reports: None : reports: Kidney stones HEENT: reports: None Psych: reports: None Musculoskeletal: reports: None Derm: reports: None MRSA Hx?: No - Past Surgical History /RESPIRATORY PRACTITIONER: reports: section (Two Sections, Currently POD#6/) - Family & Social History Family History: Mother: Alive and Well, Father: Alive and Well Living arrangement: At home Living Situation: With spouse/s.o., Other (16 yo son lives at home with them.) - Substance History Use: Uses substance without health or social issues: Tobacco, Cannabis (Rare use of Cannabis. Smoker every day and decreased during , but still every day.) Abuse: Recurrent use of substance despite neg consequences: NONE - POLST Patient has POLST: Yes POLST Status: Full Code Meds/Allgy - Home Medications Home Medications: Ambulatory Orders Medication Instructions Recorded Confirmed Acetaminophen [Acetaminophen Extra 1,000 mg PO Q8H PRN #60 tablet 07/11/21 Strength] oxyCODONE [Roxicodone] 2.5 - 5 mg PO Q4H PRN #12 tablet 07/11/21 Acetaminophen [Acetaminophen Extra 1,000 mg PO Q8H PRN #60 tablet 08/02/21 Strength] Docusate Sodium 100Mg Capsule 100 - 200 mg PO BID PRN #60 cap 08/02/21 [Colace 100Mg Capsule] Ibuprofen [Motrin] 600 mg PO Q6H PRN #60 tab 08/02/21 oxyCODONE [Roxicodone] 2.5 - 5 mg PO Q4H PRN #24 tablet 08/02/21 - Allergies Allergies/Adverse Reactions: Allergies Allergy/AdvReac Type Severity Reaction Status Date / Time No Known Drug Allergies Allergy Verified 07/01/17 12:26 Review of Systems - Constitutional Constitutional: reports: Fatigue - Cardiovascular Cariovascular: denies: Irregular heart rate, Palpitations, Chest pain - Respiratory Respiratory: denies: Cough, Sputum production, Wheezing - Gastrointestinal Gastrointestinal: reports: Constipation - Genitourinary Genitourinary: denies: Dysuria, Frequency, Urgency - Neurological Neurological: denies: Headache - Psychiatric Psychiatric: reports: Anxiety (Patient is appropriately stressed about current situation at home.) Exam - Vital Signs Reviewed Vital Signs: Yes Vital Signs: Vital Signs x48h Pulse Resp BP BP 08/06/21 17:45 148/91 H 08/06/21 17:30 153/92 H 08/06/21 17:15 151/89 H 08/06/21 17:06 85 20 174/115 H - Physical Exam General Appearance: positive: Mild distress Eyes Bilateral: positive: Normal inspection Respiratory: positive: Breath sounds nml. negative: Wheezes, Rales, Rhonchi Cardiovascular: positive: Regular rate & rhythm, No murmur, No gallop Abdomen: positive: Non-tender, Nml bowel sounds. negative: Guarding, Rebound Skin: positive: Color nml, Warm, Dry Extremities: positive: Full ROM, No pedal edema. negative: Calf tenderness Neurologic/Psychiatric: positive: Oriented x3, Mood/affect nml Reflexes: Knee (L): 2+ Comments/Other: A- POD#6 Repeat LTCS with Pre-Eclampsia with Severe Range blood pressure with Chronic Hypertension. P- Admit. Magnesium Sulfate 4 gram bolus and 2 grams/hour. Conclusion/Plan - Lab Results Fish Bones: 08/06/21 17:23 08/06/21 17:23
[2021-08-06] MEDS: LACTATED RINGERS 1,000 ML IV SCH (19:45)
[2021-08-06] MEDS ORDERED: LABETALOL 20 MG/4 ML SYRINGE IVP ONE (20:00)
[2021-08-06] MEDS: MAGNESIUM SULFATE IN WATER 20 GM/500 ML IV.SOLN IV SCH (20:20)
[2021-08-06] MEDS: LABETALOL 100 MG TABLET PO SCH (20:54)
[2021-08-06] MEDS: ACETAMINOPHEN 325 MG TABLET PO PRN (20:55)
[2021-08-06] MEDS ORDERED: NICOTINE 21 MG PATCH TOP SCH (21:00)
[2021-08-06] MEDS: IBUPROFEN 600 MG TABLET PO SCH ×2 (22:44→23:57)
[2021-08-07] MEDS: ACETAMINOPHEN 325 MG TABLET PO PRN ×4 (02:04→18:27)
[2021-08-07] MEDS: MAGNESIUM SULFATE IN WATER 20 GM/500 ML IV.SOLN IV SCH ×2 (05:59→16:07)
[2021-08-07] MEDS: LACTATED RINGERS 1,000 ML IV SCH (05:59)
[2021-08-07] MEDS: IBUPROFEN 600 MG TABLET PO SCH (08:24)
[2021-08-07 08:32] LABS: ALBUMIN 3.2 g/dL (3.2-5.5); ALBUMIN/GLOBULIN RATIO 0.9 (1.0-2.2); BILIRUBIN,TOTAL 0.4 mg/dL (0.2-1.0); CALCIUM 7.7 mg/dL (8.5-10.3); CREATININE 0.7 mg/dL (0.4-1.0); POTASSIUM 3.8 mmol/L (3.5-5.0); TOTAL PROTEIN 6.8 g/dL (6.7-8.2)
[2021-08-07] MEDS ORDERED: DOCUSATE SODIUM 250 MG CAPSULE PO SCH (09:00)
[2021-08-07] MEDS: LABETALOL 100 MG TABLET PO SCH ×2 (09:00→19:45)
--- NOTE | 2021-08-07 10:27 | PROVIDER PROGRESS NOTE ---
Subjective - Prog Note Date Prog Note Date: 08/07/21 Prog Note Time: 10:25 - Subjective Pt reports feeling: No change (Patient was experiencing some blurred vision this morning. She states she is exhausted, did not sleep well, she states it is finally better now. Explained to patient she is on Magnesium and it can make her feel "not well" and give her a headache etc. Patient is amblating to bathroom with assist.) Objective - Vital Signs/Intake & Output Reviewed Vital Signs: Yes Vital Signs: Vital Signs x48h Temp Pulse Pulse Resp BP BP Pulse Ox 08/07/21 10:00 146/89 H 08/07/21 09:30 139/85 H 08/07/21 09:00 141/84 H 08/07/21 08:30 88 18 145/88 H 99 08/07/21 08:00 150/87 H 08/07/21 07:30 127/73 08/07/21 06:57 84 16 143/83 H 97 08/07/21 06:30 88 17 143/80 H 98 08/07/21 06:00 86 18 130/83 H 99 08/07/21 05:31 98.1 F 90 16 135/78 H 99 08/07/21 05:00 79 16 119/65 97 08/07/21 04:30 88 17 119/65 97 08/07/21 04:12 84 18 139/82 H 95 08/07/21 03:30 81 17 129/76 95 08/07/21 03:00 81 17 136/83 H 95 08/07/21 02:30 81 16 133/81 H 96 Intake & Output: Intake & Output 08/04/21 08/05/21 08/06/21 08/07/21 23:59 23:59 23:59 23:59 Intake Total 340 2123.333 Output Total 530 2605 Balance -190 -831.727 - Objective General Appearance: positive: No acute distress Eyes Bilateral: positive: Normal inspection Respiratory: positive: Breath sounds nml. negative: Wheezes, Rales, Rhonchi Cardiovascular: positive: Regular rate & rhythm, No murmur, No gallop Abdomen: positive: Non-tender, Nml bowel sounds Skin: positive: Color nml Extremities: positive: Non-tender, Pedal edema. negative: Calf tenderness Neurologic/Psychiatric: positive: Oriented x3, Mood/affect nml Reflexes: Knee (L): 2+ - Lab Results Fish Bones: 08/06/21 17:23 08/07/21 08:11 Other Labs: Lab Results x24hrs 08/07/21 08/07/21 08/07/21 Range/Units 08:11 08:11 01:59 WBC (4.8-10.8) x10^3/uL RBC (4.20-5.40) 10^6/uL Hgb (12.0-16.0) g/dL Hct (37.0-47.0) % MCV (81.0-99.0) fL MCH (27.0-31.0) pg MCHC (32.0-36.0) g/dL RDW (12.0-15.0) % Plt Count (130-450) 10^3/uL MPV (7.9-10.8) fL Neut # (Auto) (1.5-6.6) 10^3/uL Lymph # (Auto) (1.5-3.5) 10^3/uL Dupage # (Auto) (0.0-1.0) 10^3/uL Eos # (Auto) (0.0-0.7) 10^3/uL Baso # (Auto) (0.0-0.1) 10^3/uL Absolute Nucleated RBC x10^3/uL Nucleated RBC % /100WBC Sodium 136 (135-145) mmol/L Potassium 3.8 (3.5-5.0) mmol/L Chloride 101 (101-111) mmol/L Carbon Dioxide 25 (21-32) mmol/L Anion Gap 10.0 (6-13) BUN 11 (6-20) mg/dL Creatinine 0.7 (0.4-1.0) mg/dL Estimated GFR (MDRD) 95 (>89) Glucose 112 H (70-100) mg/dL Uric Acid (2.6-7.2) mg/dL Calcium 7.7 L (8.5-10.3) mg/dL Magnesium 6.0 H* 5.5 H* (1.7-2.8) mg/dL Total Bilirubin 0.4 (0.2-1.0) mg/dL AST 18 (10-42) IU/L ALT 24 (10-60) IU/L Alkaline Phosphatase 110 (42-121) IU/L Lactate Dehydrogenase (91-225) IU/L Total Protein 6.8 (6.7-8.2) g/dL Albumin 3.2 (3.2-5.5) g/dL Globulin 3.6 (2.1-4.2) g/dL Albumin/Globulin Ratio 0.9 L (1.0-2.2) Urine Creatinine mg/dL Ur Total Protein Timed mg/dL Protein/Creatinin Ratio 08/06/21 08/06/21 08/06/21 Range/Units 17:55 17:23 17:23 WBC (4.8-10.8) x10^3/uL RBC (4.20-5.40) 10^6/uL Hgb (12.0-16.0) g/dL Hct (37.0-47.0) % MCV (81.0-99.0) fL MCH (27.0-31.0) pg MCHC (32.0-36.0) g/dL RDW (12.0-15.0) % Plt Count (130-450) 10^3/uL MPV (7.9-10.8) fL Neut # (Auto) (1.5-6.6) 10^3/uL Lymph # (Auto) (1.5-3.5) 10^3/uL [place] # (Auto) (0.0-1.0) 10^3/uL Eos # (Auto) (0.0-0.7) 10^3/uL Baso # (Auto) (0.0-0.1) 10^3/uL Absolute Nucleated RBC x10^3/uL Nucleated RBC % /100WBC Sodium 138 (135-145) mmol/L Potassium 4.0 (3.5-5.0) mmol/L Chloride 104 (101-111) mmol/L Carbon Dioxide 23 (21-32) mmol/L Anion Gap 11.0 (6-13) BUN 15 (6-20) mg/dL Creatinine 0.9 (0.4-1.0) mg/dL Estimated GFR (MDRD) 71 L (>89) Glucose 86 (70-100) mg/dL Uric Acid 7.0 (2.6-7.2) mg/dL Calcium 9.3 (8.5-10.3) mg/dL Magnesium (1.7-2.8) mg/dL Total Bilirubin 0.7 (0.2-1.0) mg/dL AST 20 19 (10-42) IU/L ALT 24 (10-60) IU/L Alkaline Phosphatase 109 (42-121) IU/L Lactate Dehydrogenase (91-225) IU/L Total Protein 7.0 (6.7-8.2) g/dL Albumin 3.3 (3.2-5.5) g/dL Globulin 3.7 (2.1-4.2) g/dL Albumin/Globulin Ratio 0.9 L (1.0-2.2) Urine Creatinine 32.1 mg/dL Ur Total Protein Timed < 6 mg/dL Protein/Creatinin Ratio Not Reportable 08/06/21 08/06/21 Range/Units 17:23 17:23 WBC 11.0 H (4.8-10.8) x10^3/uL RBC 3.68 L (4.20-5.40) 10^6/uL Hgb 11.6 L (12.0-16.0) g/dL Hct 35.8 L (37.0-47.0) % MCV 97.3 (81.0-99.0) fL MCH 31.5 H (27.0-31.0) pg MCHC 32.4 (32.0-36.0) g/dL RDW 13.8 (12.0-15.0) % Plt Count 467 H (130-450) 10^3/uL MPV 8.9 (7.9-10.8) fL Neut # (Auto) 7.9 H (1.5-6.6) 10^3/uL Lymph # (Auto) 1.9 (1.5-3.5) 10^3/uL Dupage # (Auto) 0.6 (0.0-1.0) 10^3/uL Eos # (Auto) 0.4 (0.0-0.7) 10^3/uL Baso # (Auto) 0.1 (0.0-0.1) 10^3/uL Absolute Nucleated RBC 0.00 x10^3/uL Nucleated RBC % 0.0 /100WBC Sodium (135-145) mmol/L Potassium (3.5-5.0) mmol/L Chloride (101-111) mmol/L Carbon Dioxide (21-32) mmol/L Anion Gap (6-13) BUN (6-20) mg/dL Creatinine (0.4-1.0) mg/dL Estimated GFR (MDRD) (>89) Glucose (70-100) mg/dL Uric Acid (2.6-7.2) mg/dL Calcium (8.5-10.3) mg/dL Magnesium (1.7-2.8) mg/dL Total Bilirubin (0.2-1.0) mg/dL AST (10-42) IU/L ALT (10-60) IU/L Alkaline Phosphatase (42-121) IU/L Lactate Dehydrogenase 175 (91-225) IU/L Total Protein (6.7-8.2) g/dL Albumin (3.2-5.5) g/dL Globulin (2.1-4.2) g/dL Albumin/Globulin Ratio (1.0-2.2) Urine Creatinine mg/dL Ur Total Protein Timed mg/dL Protein/Creatinin Ratio - Other Results/Comments Other Results/Comments: A- POD#7 Repeat Low Transverse Section Pre-Eclampsia with Severe features P- COntinue Magnesium sulfate for 24 hours. Consider discharge this evening if blood pressures stay well-controlled.
[2021-08-07] MEDS: NIFEdipine ER 30 MG TABLET PO SCH (16:23)
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
--- NOTE | 2021-08-07 17:28 | DISCHARGE SUMMARY ---
Discharge Summary Admit Date: 08/06/21 Discharge Date: 08/07/21 Discharging Provider: Adrianna Flores DO Code Status: Attempt Resuscitation Condition at Discharge: Good Discharge Disposition: 01 Home, Self Care Discharge Facility Name: [facility] - DIAGNOSES Admission Diagnoses: POD#7 Repeat LTCS, Pre-Eclampsia with Severe Features P- Discharge to home when 24 hour infusion is done. Regular diet. Pelvic rest. No driving until she can slam on her brakes. Follow-up with Dr. Berkowitz next week as planned. - ALLERGIES Allergies/Adverse Reactions: Allergies Allergy/AdvReac Type Severity Reaction Status Date / Time No Known Drug Allergies Allergy Verified 08/06/21 20:05 - MEDICATIONS Home Medications: Ambulatory Orders Medication Instructions Recorded Confirmed Acetaminophen [Acetaminophen Extra 1,000 mg PO Q8H PRN #60 tablet 07/11/21 Strength] oxyCODONE [Roxicodone] 2.5 - 5 mg PO Q4H PRN #12 tablet 07/11/21 Acetaminophen [Acetaminophen Extra 1,000 mg PO Q8H PRN #60 tablet 08/02/21 Strength] Docusate Sodium 100Mg Capsule 100 - 200 mg PO BID PRN #60 cap 08/02/21 [Colace 100Mg Capsule] Ibuprofen [Motrin] 600 mg PO Q6H PRN #60 tab 08/02/21 oxyCODONE [Roxicodone] 2.5 - 5 mg PO Q4H PRN #24 tablet 08/02/21 - PHYSICAL EXAM AT DISCHARGE General Appearance: positive: No acute distress Eyes Bilateral: positive: Normal inspection Respiratory: positive: Breath sounds nml. negative: Wheezes, Rales, Rhonchi Cardiovascular: positive: Regular rate & rhythm, No murmur, No gallop Abdomen: positive: Non-tender, Nml bowel sounds Extremities: positive: No pedal edema Neurologic/Psychiatric: positive: Oriented x3, Mood/affect nml - LABS Result Diagrams: 08/06/21 17:23 08/07/21 08:11 - QUALITY (Female Hip Fx Only) Was patient sent home on osteoporosis medication?: No - FOLLOW UP Follow Up: COne week with Dr. Berkowitz. Call for any concerns. - TIME SPENT Time Spent in Discharge (Minutes): 30
--- NOTE | 2021-08-07 17:33 | Discharge Plan ---
Discharge Plan Problem Reviewed?: Yes Disposition: Home, Self Care Condition: Good Diet: Regular Activity Restrictions: Pelvic Rest Shower Restrictions: No Weight Bearing: Full Weight No Smoking: If you smoke, Please STOP! Call for help.
[2021-08-07 21:19] VITALS: BP 132/82
== END 2021-08-07 20:35 | disposition home or self-care (01) | DRG 776 ==
LOC: WFO 16:56 → FBP 16:58 → WFO 19:46
PROVIDERS: ADMIT Obstetrics & Gynecology; ATTEND Obstetrics & Gynecology
DX: O14.15 Severe pre-eclampsia, complicating the puerperium (principal); O99.335 Smoking (tobacco) complicating the puerperium; F17.210 Nicotine dependence, cigarettes, uncomplicated; O99.345 Other mental disorders complicating the puerperium; F41.9 Anxiety disorder, unspecified; Z73.3 Stress, not elsewhere classified
CPT/HCPCS: 36415; 80053; 82570; 83615; 83735; 84156; 84450; 84550; 85025; 99215; A9270; J7120; J3475

== ENCOUNTER 2021-08-07 16:45 | Outpatient (CLI) | payer MEDICAID ==
[2021-08-07 16:43] LABS: AMPHETAMINE SCREEN,URINE NEGATIVE (NEGATIVE); BARBITURATE SCREEN,UR NEGATIVE (NEGATIVE); BENZODIAZEPINES SCREEN, URINE NEGATIVE (NEGATIVE); COCAINE SCREEN URINE NEGATIVE (NEGATIVE); METHADONE SCREEN, URINE NEGATIVE (NEGATIVE); METHAMPHETAMINES SCREEN, URINE NEGATIVE (NEGATIVE); MUDS CUTOFF CONCENTRATIONS CUTOFF CONC BELOW:; OPIATE SCREEN, URINE NEGATIVE (NEGATIVE); OXYCODONE SCREEN, URINE POSITIVE (NEGATIVE); PROPOXYPHENE SCREEN, URINE NEGATIVE (NEGATIVE); THC CANNABINOID SCREEN, URINE NEGATIVE (NEGATIVE); TRICYCLIC ANTIDEPRESSANT,URINE NEGATIVE (NEGATIVE)
== END 2021-08-07 23:59 | disposition home or self-care (01) ==
LOC: LAB.WC 16:45
PROVIDERS: ATTEND Obstetrics & Gynecology
DX: Z39.1 Encounter for care and examination of lactating mother (principal)
CPT/HCPCS: 80306

== ENCOUNTER 2021-08-10 17:32 | Emergency (ER) | payer MEDICAID ==
[2021-08-10 18:25] LABS: BASOPHILS # (AUTO) 0.1 10^3/uL (0.0-0.1); BASOPHILS % (AUTO) 0.6 %; EOSINOPHILS # (AUTO) 0.4 10^3/uL (0.0-0.7); EOSINOPHILS % (AUTO) 3.1 %; HCT - HEMATOCRIT 45.2 % (37.0-47.0); HGB - HEMOGLOBIN 14.7 g/dL (12.0-16.0); LYMPHOCYTES # (AUTO) 2.4 10^3/uL (1.5-3.5); LYMPHOCYTES % (AUTO) 18.8 %; MEAN CORPUSCULAR HEMOGLOBIN 31.6 pg (27.0-31.0); MEAN CORPUSCULAR HGB CONC 32.5 g/dL (32.0-36.0); MEAN CORPUSCULAR VOLUME 97.2 fL (81.0-99.0); MEAN PLATELET VOLUME 8.3 fL (7.9-10.8); MONOCYTES # (AUTO) 0.8 10^3/uL (0.0-1.0); MONOCYTES % (AUTO) 6.3 %; NEUTROPHILS % (AUTO) 70.7 %; PLT - PLATELET COUNT 605 10^3/uL (130-450); RED BLOOD COUNT 4.65 10^6/uL (4.20-5.40); RED CELL DISTRIBUTION WIDTH 13.6 % (12.0-15.0); WHITE BLOOD COUNT 12.7 x10^3/uL (4.8-10.8)
[2021-08-10 18:36] LABS: ALBUMIN 4.1 g/dL (3.2-5.5); BILIRUBIN,TOTAL 0.3 mg/dL (0.2-1.0); CALCIUM 9.2 mg/dL (8.5-10.3); CREATININE 0.9 mg/dL (0.4-1.0); POTASSIUM 4.4 mmol/L (3.5-5.0); TOTAL PROTEIN 8.2 g/dL (6.7-8.2)
[2021-08-10] MEDS ORDERED: LORazepam 0.5 MG TABLET ONE (19:10)
[2021-08-10] MEDS ORDERED: LABETALOL 100 MG TABLET PO STA (19:41)
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
[2021-08-10 19:57] VITALS: BP 163/106
[2021-08-10] MEDS ORDERED: LABETALOL 100 MG TABLET PO ONE (20:01)
[2021-08-10 20:22] LABS: CREATININE,URINE 93.9 mg/dL
[2021-08-10 20:26] LABS: BILIRUBIN,URINE NEGATIVE (NEGATIVE); GLUCOSE, URINE (UA) NEGATIVE (NEGATIVE); KETONES,URINE (UA) NEGATIVE (NEGATIVE); LEUKOCYTE ESTERASE, URINE NEGATIVE (NEGATIVE); NITRITE,URINE NEGATIVE (NEGATIVE); OCCULT BLOOD,URINE LARGE (NEGATIVE); PROTEIN,URINE NEGATIVE (NEGATIVE); UROBILINOGEN,URINE 0.2 (NORMAL) E.U./dL (NORMAL)
[2021-08-10 20:28] LABS: CLARITY,URINE CLEAR (CLEAR)
[2021-08-10 20:29] LABS: BACTERIA,URINE Rare /HPF (None Seen); RBC,URINE 0-5 /HPF (0-5); SQUAMOUS EPITHELIAL CELL,UR MOD Squamous (<= Few); WBC,URINE 0-3 /HPF (0-5)
== END 2021-08-10 20:02 | disposition home or self-care (01) ==
LOC: ED 17:32
DX: O13.5 Gestational [pregnancy-induced] hypertension without significant proteinuria, complicating the puerperium (principal)
CPT/HCPCS: 36415; 80053; 81001; 82570; 83735; 84156; 85025; 99283; A9270; 81003; 87086

== ENCOUNTER 2023-09-24 13:45 | Outpatient (CLI) | payer MEDICAID ==
--- NOTE | 2023-09-24 14:56 | XRAY Report ---
PROCEDURE: Foot 3 View RT INDICATIONS: RIGHT FOOT PAIN TECHNIQUE: 3 views of the foot were acquired. COMPARISON: None. FINDINGS: Bones: No fractures or dislocations. No suspicious bony lesions. Soft tissues: No suspicious soft tissue calcifications or masses. IMPRESSION: No visualized acute fracture or dislocation. However, occult injury cannot be excluded. Recommend lobo rt interval imaging follow-up in 7-10 days as clinically indicated for additional evaluation. Reviewed by: Rosenda Kelsey MD on 09/24/2023 2:55 PM PDT Approved by: Rosenda Kelsey MD on 09/24/2023 2:55 PM PDT Station ID: [id number]
== END 2023-09-24 23:59 | disposition home or self-care (01) ==
LOC: DI.S 13:45
PROVIDERS: ATTEND Physician Assistant
DX: M79.671 Pain in right foot (principal)

== ENCOUNTER 2024-05-06 09:46 | Outpatient (CLI) | payer MEDICAID ==
[2024-05-06 14:33] LABS: BASOPHILS # (AUTO) 0.1 10^3/uL (0.0-0.1); BASOPHILS % (AUTO) 0.7 %; EOSINOPHILS # (AUTO) 0.5 10^3/uL (0.0-0.7); EOSINOPHILS % (AUTO) 5.8 %; HCT - HEMATOCRIT 44.6 % (37.0-47.0); HGB - HEMOGLOBIN 14.5 g/dL (12.0-16.0); LYMPHOCYTES % (AUTO) 21.3 %; MEAN CORPUSCULAR HEMOGLOBIN 32.8 pg (27.0-31.0); MEAN CORPUSCULAR HGB CONC 32.5 g/dL (32.0-36.0); MEAN CORPUSCULAR VOLUME 100.9 fL (81.0-99.0); MEAN PLATELET VOLUME 10.1 fL (7.9-10.8); MONOCYTES # (AUTO) 0.7 10^3/uL (0.0-1.0); MONOCYTES % (AUTO) 7.3 %; NEUTROPHILS % (AUTO) 64.6 %; PLT - PLATELET COUNT 350 10^3/uL (130-450); RED BLOOD COUNT 4.42 10^6/uL (4.20-5.40); RED CELL DISTRIBUTION WIDTH 12.2 % (12.0-15.0); WHITE BLOOD COUNT 9.2 x10^3/uL (4.8-10.8)
[2024-05-06 14:36] LABS: BILIRUBIN,URINE NEGATIVE (NEGATIVE); GLUCOSE, URINE (UA) NEGATIVE (NEGATIVE); KETONES,URINE (UA) NEGATIVE (NEGATIVE); LEUKOCYTE ESTERASE, URINE NEGATIVE (NEGATIVE); NITRITE,URINE NEGATIVE (NEGATIVE); OCCULT BLOOD,URINE NEGATIVE (NEGATIVE); PROTEIN,URINE NEGATIVE (NEGATIVE); UROBILINOGEN,URINE 0.2 (NORMAL) E.U./dL (NORMAL)
[2024-05-06 14:41] LABS: BACTERIA,URINE Rare /HPF (None Seen); CLARITY,URINE CLEAR (CLEAR); RBC,URINE None Seen /HPF (0-5); SQUAMOUS EPITHELIAL CELL,UR MOD Squamous (<= Few); WBC,URINE 0-3 /HPF (0-5)
[2024-05-06 14:59] LABS: ALBUMIN 4.4 g/dL (3.2-5.5); ALBUMIN/GLOBULIN RATIO 1.5 (1.0-2.2); ALKALINE PHOSPHATASE 46 IU/L (42-121); ALT ALANINE AMINOTRANSFERASE 31 IU/L (10-60); AST ASPARTATE AMINOTRANSFERASE 26 IU/L (10-42); BILIRUBIN,TOTAL 0.5 mg/dL (0.2-1.0); BUN - BLOOD UREA NITROGEN 18 mg/dL (6-20); CALCIUM 9.8 mg/dL (8.5-10.3); CARBON DIOXIDE - CO2 27 mmol/L (21-32); CHLORIDE 101 mmol/L (101-111); CHOL/HDL RATIO 3.9 (<4.4); CHOLESTEROL 201 mg/dL; CREATININE 0.9 mg/dL (0.6-1.3); GFR - MDRD 70 (>89); GLUCOSE 102 mg/dL (74-104); HDL CHOLESTEROL 51 mg/dL; LDL CHOLESTEROL,CALCULATED 116 mg/dL; LDL/HDL RATIO 2.3 (<4.4); POTASSIUM 4.1 mmol/L (3.5-4.5); SODIUM 135 mmol/L (135-145); TOTAL PROTEIN 7.3 g/dL (6.4-8.9); TRIGLYCERIDES 168 mg/dL (48-352); VLDL CHOLESTEROL 34 mg/dL
[2024-05-06 15:01] LABS: THYROID STIMULATING HORMONE 1.28 uIU/mL (0.34-5.60)
== END 2024-05-06 09:47 | disposition home or self-care (01) ==
LOC: LAB.S 09:46
PROVIDERS: ATTEND Nurse Practitioner Family
DX: I10 Essential (primary) hypertension (principal); R32 Unspecified urinary incontinence
CPT/HCPCS: 36415; 80050; 80061; 81001; 83721; 87086